=== PATIENT | male | born 1990 | race Caucasian/White ===

== ENCOUNTER 2019-05-12 13:32 | Inpatient (IN) | payer SELFPAY ==
[~2019-05-12] VITALS: Ht 185.4 cm; Wt 104.8 kg
[2019-05-12] VITALS (9 sets, daily range): BP systolic 95–133; BP diastolic 61–81
[~2019-05-12 13:32] MED LIST: GEMF600T PO; METF-442 PO
--- NOTE | 2019-05-12 13:54 | NUR ---
LUQ ABDOMINAL PAIN W/ NAUSEA AND VOMITING SINCE THIS MORNING. STATES PAIN IS 10/10 AND SHARP. HAD ABOUT 3 EPISODES OF VOMITING TODAY. SLIGHTLY DIAPHORETIC. AOX4, AMB, VSS, RR EVEN AND UNLABORED. DENIES SOB, DIZZINESS, WEAKNESS. NO ACUTE DISTRESS NOTED. SEEN BY MARGIE MATTSON. AWAITING ORDERS.
[2019-05-12] MEDS ORDERED: MORPHINE SULFATE INJ 4 MG/ML DISP.SYRIN ONE (13:56)
[2019-05-12] MEDS ORDERED: ONDANSETRON HCL/PF 4 MG/2 ML VIAL ONE (13:56)
[2019-05-12] MEDS ORDERED: IV NS 0.9% 1,000 ML BAG IV ONE (14:00)
[2019-05-12] MEDS ORDERED: ONDANSETRON HCL/PF 4 MG/2 ML VIAL IVP ONE (14:00)
[2019-05-12] MEDS ORDERED: MORPHINE SULFATE INJ 2 MG/ML DISP.SYRIN IV ONE (14:00)
[2019-05-12 14:10] LABS: BASOPHILS # (AUTO) 0.1 /CMM (0.0-0.2); BASOPHILS % (AUTO) 1.1 % (0.0-2.0); EOSINOPHILS % (AUTO) 2.4 % (0.0-6.0); HEMATOCRIT 48 % (39-51); HEMOGLOBIN 16.8 g/dL (13.5-17.5); LYMPHOCYTES # (AUTO) 3.1 /CMM (0.8-4.8); LYMPHOCYTES % (AUTO) 39.8 % (20.0-44.0); MEAN CORPUSCULAR HGB CONC 35 g/dl (31.0-36.0); MEAN CORPUSCULAR VOLUME 87 fL (80-96); MONOCYTES # (AUTO) 0.7 /CMM (0.1-1.30); MONOCYTES % (AUTO) 8.9 % (2.0-12.0); NEUTROPHILS # (AUTO) 3.8 /CMM (1.8-8.9); NEUTROPHILS % (AUTO) 47.8 % (43.0-81.0); PLATELET COUNT (AUTO) 301 /CMM (150-450); RED BLOOD CELL COUNT(AUTO) 5.53 MIL/uL (4.5-6.0); WHITE BLOOD COUNT (AUTO) 7.9 K/uL (4.3-11.0)
[2019-05-12 14:18] LABS: CALCIUM, SERUM 8.6 mg/dL (8.5-10.1); CREATININE 0.8 mg/dL (0.6-1.3); POTASSIUM 3.6 mmol/L (3.5-5.1)
[2019-05-12 14:24] LABS: ALBUMIN 4.1 g/dL (3.4-5.0); BILIRUBIN,DIRECT 0.1 mg/dL (0.0-0.2); BILIRUBIN,TOTAL 0.6 mg/dL (0.2-1.0); TOTAL PROTEIN, SERUM 8.5 g/dL (6.4-8.2)
[2019-05-12] MEDS ORDERED: HYDROMORPHONE 1 MG/1 ML DISP.SYRIN ONE ×3 (14:40→22:35)
[2019-05-12] MEDS ORDERED: HYDROMORPHONE INJ 0.5 MG/0.5 ML SYRINGE IV ONE ×2 (15:00→22:30)
--- NOTE | 2019-05-12 15:20 | NUR ---
ENDOSCOPY NURSE AT BEDSIDE
--- NOTE | 2019-05-12 15:45 | NUR ---
WAITING FOR ICU BED
[2019-05-12] MEDS ORDERED: HYDROMORPHONE INJ 2 MG/ML DISP.SYRIN IV ONE (16:30)
--- NOTE | 2019-05-12 16:30 | NUR ---
PT REQUESTING MORE PAIN MEDICATION. PA AWARE
[2019-05-12 16:48] LABS: CHOLESTEROL 241 mg/dL (<200); HDL CHOLESTEROL 18 mg/dL (40-60); LDL 50 mg/dL (0-99); TRIGLYCERIDES 1570 mg/dL (30-150)
--- NOTE | 2019-05-12 16:59 | NUR ---
ICU 258
[2019-05-12] MEDS ORDERED: ACETAMINOPHEN 325 MG TABLET PO PRN (17:00)
[2019-05-12] MEDS ORDERED: Z GUARD REMEDY 2 OZ OINT TP PRN (17:00)
[2019-05-12] MEDS ORDERED: MAGNESIUM HYDROXIDE 30 ML UDC PO PRN (17:00)
[2019-05-12] MEDS ORDERED: ZOLPIDEM TARTRATE 5 MG TABLET PO PRN (17:00)
[2019-05-12] MEDS ORDERED: IV D5/ 0.9% NACL 1,000 ML IV PRN ×2 (17:00→21:30)
--- NOTE | 2019-05-12 17:39 | NUR ---
REPORT GIVEN TO SHERMAN OSMAN FOR ANNA, ICU 258. ADMITTING DARRIAN NOE, PANCREATITIS.
--- NOTE | 2019-05-12 17:42 | NUR ---
REPORT RECEIVED FROM [facility] ED PATIENT TO GO TO ROOM 258
--- NOTE | 2019-05-12 17:55 | NUR ---
RECEIVED PT VIA [facility] ACLS PROTOCOL ABLE TO AMBULATE TO BED. A/O X4 MALAGASY SPEAKING ABLE TO UNDERSTAND SOME FRISIAN. CURRENT VITALS T 98.2 HR 71 BP 140/73 O2 99% ON ROOM AIR. NO SIGN OR SYMPTOMS OF RESPIRATORY DISTRESS C/O PAIN /10 TO LUQ. SINUS ON MONITOR URINAL AT BEDSIDE WILL F/U WITH UA. ABLE TO MOVE ALL EXTREMITIES. NPO AT THIS TIME. IV ACCESS TO LAC # 20 GAUGE SL AND R HAND # 20 GAUGE. IVF D2NS@ 80 ML RUNNING IN R HAND. MED RECON COMPLETE WILL FOLLOW OUT ORDERS OF INSULIN DRIP PROTOCOL. SAFETY AND ASPIRATION PRECAUTIONS IN PLACE ORIENTED TO ROOM AND CALL SYSTEM. WILL CONT TO MONITOR ACCORDINGLY
--- NOTE | 2019-05-12 17:55 | NUR ---
[facility]
[2019-05-12] MEDS: INSULIN REGULAR, HUMAN 100 UNIT in IV NS 0.9% 99 ML IV PRN ×2 (18:56)
--- NOTE | 2019-05-12 18:59 | NUR ---
INSULIN STARTED @ 10 UNITS /HR
--- NOTE | 2019-05-12 19:17 | NUR ---
REPORT ENDORSED TO NOC
[2019-05-12] MEDS: MORPHINE SULFATE INJ 2 MG/ML DISP.SYRIN IV PRN (19:51)
[2019-05-12] MEDS ORDERED: Sodium Chloride 154 MEQ in IV 10% DEXTROSE 1,000 ML IV PRN (20:00)
[2019-05-12] MEDS ORDERED: diphenhydrAMINE HCL 50 MG/ML VIAL IV PRN (20:00)
--- NOTE | 2019-05-12 20:00 | NUR ---
[facility] - NOTES - RECEIVED PT IN BED, AWAKE ALERT ORIENTED X 4. PT WAS ADMITTED FROM PANCREATITIS SECONDARY TO HIGH TRIGLYCERIDES 1570. PER FIRE BOSS DARRIAN NOE PT IS ON INSULIN GTT @ 10 UNITS/HR AND D5NS @ 80 ML/HR. PT IS ON ROOM AIR 02SAT WNL. PT IS IN NSR, WITH BP WNL. PT IS NPO EXCEPT MEDS. PT CAN USE URINAL. SKIN IS INTACT. IV RIGHT HAND 20 AND L AC 20. WILL CONTINUE TO MONITOR
--- NOTE | 2019-05-12 21:05 | NUR ---
ORDER RECEIVED FROM DARRIAN NOE NP, TO PLACE PT ON D5NS @ 100 ML/HR, INSULIN GTT 8 UNITS/HR
[2019-05-12] MEDS: GEMFIBROZIL 600 MG TABLET PO SCH (21:20)
[2019-05-12] MEDS: IV D5/ 0.9% NACL 1,000 ML IV SCH (21:35)
[2019-05-12] MEDS: ENOXAPARIN SODIUM 40 MG/0.4 ML DISP.SYRIN SQ SCH (21:36)
[2019-05-12] MEDS: BLOOD SUGAR DIAGNOSTIC 1 EACH STRIP IN SCH ×2 (22:24→23:28)
[2019-05-12] MEDS ORDERED: HYDROMORPHONE 1 MG/1 ML DISP.SYRIN IV ONE (23:00)
[2019-05-13] VITALS (24 sets, daily range): BP systolic 93–127; BP diastolic 45–97
[2019-05-13] MEDS: BLOOD SUGAR DIAGNOSTIC 1 EACH STRIP IN SCH ×24 (00:01→23:14)
[2019-05-13] MEDS: IV D5/ 0.9% NACL 1,000 ML IV SCH (04:15)
[2019-05-13 04:44] LABS: BASOPHILS % (AUTO) 0.4 % (0.0-2.0); EOSINOPHILS % (AUTO) 1.3 % (0.0-6.0); HEMATOCRIT 43 % (39-51); HEMOGLOBIN 14.8 g/dL (13.5-17.5); LYMPHOCYTES # (AUTO) 2.1 /CMM (0.8-4.8); LYMPHOCYTES % (AUTO) 19.7 % (20.0-44.0); MEAN CORPUSCULAR HGB CONC 35 g/dl (31.0-36.0); MEAN CORPUSCULAR VOLUME 87 fL (80-96); MONOCYTES # (AUTO) 0.8 /CMM (0.1-1.30); MONOCYTES % (AUTO) 7.1 % (2.0-12.0); NEUTROPHILS # (AUTO) 7.7 /CMM (1.8-8.9); NEUTROPHILS % (AUTO) 71.5 % (43.0-81.0); PLATELET COUNT (AUTO) 258 /CMM (150-450); RED BLOOD CELL COUNT(AUTO) 4.88 MIL/uL (4.5-6.0); WHITE BLOOD COUNT (AUTO) 10.8 K/uL (4.3-11.0)
[2019-05-13 05:36] LABS: ALBUMIN 3.1 g/dL (3.4-5.0); BILIRUBIN,DIRECT 0.1 mg/dL (0.0-0.2); BILIRUBIN,TOTAL 0.4 mg/dL (0.2-1.0); CALCIUM, SERUM 8.2 mg/dL (8.5-10.1); CREATININE 0.8 mg/dL (0.6-1.3); MAGNESIUM 1.9 mg/dL (1.8-2.4); PHOSPHORUS 3.9 mg/dL (2.5-4.9); POTASSIUM 3.2 mmol/L (3.5-5.1); TOTAL PROTEIN, SERUM 6.8 g/dL (6.4-8.2)
[2019-05-13] MEDS: MORPHINE SULFATE INJ 2 MG/ML DISP.SYRIN IV PRN ×4 (06:26→20:00)
[2019-05-13] MEDS: ONDANSETRON HCL/PF 4 MG/2 ML VIAL IVP PRN ×2 (06:26→21:53)
[2019-05-13] MEDS: GEMFIBROZIL 600 MG TABLET PO SCH ×2 (08:02→20:00)
[2019-05-13] MEDS ORDERED: IV D5/ 0.9% NACL 1,000 ML IV PRN (08:26)
[2019-05-13] MEDS: INSULIN REGULAR, HUMAN 100 UNIT in IV NS 0.9% 99 ML IV PRN ×6 (09:14→22:31)
[2019-05-13] MEDS ORDERED: POTASSIUM CL. PREMIX PERIPHER. 50 ML IV SCH (09:25)
--- NOTE | 2019-05-13 09:30 | NUR ---
ICU/RN: CYNTHIA Paulino notified of blood glucose trends; orders for insulin gtt and IVF rate changes noted and carried out. Updated on status telephonically.
[2019-05-13] MEDS ORDERED: Potassium Chloride 10 MEQ, LIDOCAINE HCL/PF 1% 1 ML in IV NS 0.9% 50 ML IV SCH (10:00)
[2019-05-13] MEDS ORDERED: POTASSIUM CHLORIDE 20 MEQ TAB.PRT.SR PO ONE (10:30)
[2019-05-13] MEDS: Sodium Chloride 154 MEQ in IV 10% DEXTROSE 1,000 ML IV PRN ×3 (10:39→21:53)
--- NOTE | 2019-05-13 13:00 | NUR ---
ICU/RN: Pt in bed, sleepy, arouses easily. Pain management effective.
--- NOTE | 2019-05-13 18:14 | NUR ---
ICU/RN: Notified CYNTHIA Paulino of blood glucose trend from [id number] post insulin drip rate changes. Per REGIONAL MARKETING MANAGER, titrate insulin drip to 6 units/hr. Noted and carried out. REGIONAL MARKETING MANAGER to see pt later.
--- NOTE | 2019-05-13 19:30 | NUR ---
BRAKE COUPLER DINKEY INITIAL SHIFT NOTES RECEIVED PATIENT IN BED, AWAKE, ALERT AND ORIENTED X3, ABLE TO VERBALIZE NEEDS. BREATHING EVEN AND NONLABORED, TOLERATING ROOM AIR WELL. BEDSIDE NET ARCHITECT SHOWS SINUS RHYTHM, HR 87 BPM. IV SITES PATENT AND INTACT, ONGOING INSULIN DRIP, FIXED RATE @ 6 UNITS/HR. ALSO INFUSING D10 GTT @ 200ML/HR. PLAN OF CARE DISCUSSED WITH THE PATIENT, WHOM VERBALIZES UNDERSTANDING. BED IN LOWEST AND LOCKED POSITION, CALL LIGHT WITHIN EASY REACH. WILL CONTINUE TO CLOSELY MONITOR
[2019-05-13] MEDS: ENOXAPARIN SODIUM 40 MG/0.4 ML DISP.SYRIN SQ SCH (20:01)
[2019-05-14] VITALS (24 sets, daily range): BP systolic 102–145; BP diastolic 50–97
[2019-05-14] MEDS: BLOOD SUGAR DIAGNOSTIC 1 EACH STRIP IN SCH ×24 (00:07→23:05)
[2019-05-14] MEDS: HYDROCODONE/APAP 5/325MG 1 EACH TABLET PO PRN ×2 (01:46→10:59)
[2019-05-14] MEDS: Sodium Chloride 154 MEQ in IV 10% DEXTROSE 1,000 ML IV PRN ×4 (03:02→18:47)
[2019-05-14 04:38] LABS: BASOPHILS % (AUTO) 0.3 % (0.0-2.0); EOSINOPHILS % (AUTO) 3.5 % (0.0-6.0); HEMATOCRIT 39 % (39-51); HEMOGLOBIN 13.3 g/dL (13.5-17.5); LYMPHOCYTES # (AUTO) 2.7 /CMM (0.8-4.8); LYMPHOCYTES % (AUTO) 38.7 % (20.0-44.0); MEAN CORPUSCULAR HGB CONC 35 g/dl (31.0-36.0); MEAN CORPUSCULAR VOLUME 88 fL (80-96); MONOCYTES # (AUTO) 0.8 /CMM (0.1-1.30); MONOCYTES % (AUTO) 10.8 % (2.0-12.0); NEUTROPHILS # (AUTO) 3.2 /CMM (1.8-8.9); NEUTROPHILS % (AUTO) 46.7 % (43.0-81.0); PLATELET COUNT (AUTO) 227 /CMM (150-450); WHITE BLOOD COUNT (AUTO) 6.9 K/uL (4.3-11.0)
[2019-05-14 04:54] LABS: CALCIUM, SERUM 8.4 mg/dL (8.5-10.1); CREATININE 0.8 mg/dL (0.6-1.3); MAGNESIUM 1.8 mg/dL (1.8-2.4); PHOSPHORUS 3.6 mg/dL (2.5-4.9); POTASSIUM 3.5 mmol/L (3.5-5.1)
--- NOTE | 2019-05-14 07:05 | NUR ---
RN NOTES RECEIVED PATIENT ON BED,A/Ox3, ON ON RA , RESPIRATION EVEN AND UNLABORED TELE SR HR IN 60'S, , IV SITES PATENT AND INTACT, ONGOING INSULIN DRIP, FIXED RATE @ 6 UNITS/HR. IV D10 NS @ 200ML/HR. BED IS LOCKED AND IN LOWEST POSITION ,CALL LIGHT WITHIN EASY REACH. WILL CONTINUE ACCU CHECK Q 1HR PER ORDER . AND MONITOR PT CLOSELY.
[2019-05-14] MEDS: GEMFIBROZIL 600 MG TABLET PO SCH ×2 (08:09→20:23)
[2019-05-14] MEDS: MORPHINE SULFATE INJ 2 MG/ML DISP.SYRIN IV PRN ×4 (08:10→19:59)
--- NOTE | 2019-05-14 11:00 | NUR ---
RN NOTES PT STANDING UP TO USE THE URINAL , VSS STABLE, CONTINUE TO MONITOR.
--- NOTE | 2019-05-14 14:00 | NUR ---
RN NOTES PT TOLERATING CLEAR LIQUID DIET WELL, VSS STABLE, NO DISTESS NOTED, CONTINUE TO MONITOR.
[2019-05-14] MEDS: INSULIN REGULAR, HUMAN 100 UNIT in IV NS 0.9% 99 ML IV PRN ×2 (15:44)
--- NOTE | 2019-05-14 18:23 | NUR ---
RN NOTES VSS STABLE, NO SIGNIFICANT CHANGES NOTED ON THIS SHIFT , WILL ENDOSE TO DIE DRAWING CHECKER NURSE FOR CONTINUITY OF CARE.
[2019-05-14] MEDS: ENOXAPARIN SODIUM 40 MG/0.4 ML DISP.SYRIN SQ SCH (20:24)
[2019-05-14] MEDS: ONDANSETRON HCL/PF 4 MG/2 ML VIAL IVP PRN (22:15)
[2019-05-15] VITALS (14 sets, daily range): BP systolic 104–148; BP diastolic 53–81
[2019-05-15] MEDS: BLOOD SUGAR DIAGNOSTIC 1 EACH STRIP IN SCH ×14 (00:07→13:00)
[2019-05-15] MEDS: MORPHINE SULFATE INJ 2 MG/ML DISP.SYRIN IV PRN ×2 (00:10→04:20)
[2019-05-15] MEDS: Sodium Chloride 154 MEQ in IV 10% DEXTROSE 1,000 ML IV PRN ×3 (00:47→11:31)
[2019-05-15 04:50] LABS: BASOPHILS % (AUTO) 0.5 % (0.0-2.0); EOSINOPHILS % (AUTO) 4.4 % (0.0-6.0); HEMATOCRIT 40 % (39-51); HEMOGLOBIN 13.8 g/dL (13.5-17.5); LYMPHOCYTES # (AUTO) 2.4 /CMM (0.8-4.8); LYMPHOCYTES % (AUTO) 39.8 % (20.0-44.0); MEAN CORPUSCULAR HGB CONC 34 g/dl (31.0-36.0); MEAN CORPUSCULAR VOLUME 87 fL (80-96); MONOCYTES # (AUTO) 0.9 /CMM (0.1-1.30); MONOCYTES % (AUTO) 14.1 % (2.0-12.0); NEUTROPHILS # (AUTO) 2.5 /CMM (1.8-8.9); NEUTROPHILS % (AUTO) 41.2 % (43.0-81.0); PLATELET COUNT (AUTO) 247 /CMM (150-450); RED BLOOD CELL COUNT(AUTO) 4.59 MIL/uL (4.5-6.0); WHITE BLOOD COUNT (AUTO) 6.1 K/uL (4.3-11.0)
[2019-05-15 05:20] LABS: ALBUMIN 3.1 g/dL (3.4-5.0); BILIRUBIN,TOTAL 0.5 mg/dL (0.2-1.0); CALCIUM, SERUM 8.6 mg/dL (8.5-10.1); CREATININE 0.7 mg/dL (0.6-1.3); POTASSIUM 3.3 mmol/L (3.5-5.1); TOTAL PROTEIN, SERUM 6.9 g/dL (6.4-8.2)
--- NOTE | 2019-05-15 07:00 | NUR ---
HAT BLOCK MAKER INITIAL SHIFT NOTES RECEIVED BEDSIDE REPORT PATIENT IN BED, AWAKE, ALERT AND ORIENTED X3, ABLE TO VERBALIZE NEEDS. BREATHING EVEN AND NONLABORED, TOLERATING ROOM AIR WELL. BEDSIDE SKEIN BLEACHER SHOWS SINUS RHYTHM, HR 87 BPM. IV SITES PATENT AND INTACT, ONGOING INSULIN DRIP LEFT HAND # 20 GAUGE FIXED RATE @ 6 UNITS/HR.RIGHT HAND # 20 GAUGE D10 GTT @ 200ML/HR. SAFETY PRECAUTIONS IN PLACE BED IN LOWEST AND LOCKED POSITION, CALL LIGHT WITHIN EASY REACH. WILL CONTINUE TO CLOSELY MONITOR
[2019-05-15] MEDS: GEMFIBROZIL 600 MG TABLET PO SCH (09:00)
[2019-05-15] MEDS: INSULIN REGULAR, HUMAN 100 UNIT in IV NS 0.9% 99 ML IV PRN ×2 (09:17)
--- NOTE | 2019-05-15 10:00 | NUR ---
MESSAGE LEFT WITH EPIC FOR DR MAYS IN REGARDS TO PATIENT WANTS TO LEAVE AMA
--- NOTE | 2019-05-15 10:24 | NUR ---
TITRATED INSULIN DOWN TO 4 UNITS/HR PER PROTOCOL BS 185 MG/DL
--- NOTE | 2019-05-15 11:00 | NUR ---
INSULIN DRIP TITRATED DOWN TO 2.5 UNITS/HR BS 169 MG/DL
--- NOTE | 2019-05-15 11:44 | NUR ---
PATIENT REFUSING TO EAT JUST WANTS TO GO HOME STATES HE HAS BUSINESS HE NEEDS TO TAKE CARE OF AND ONLY HE CAN DO IT. WILL PAGE EPIC AGAIN
--- NOTE | 2019-05-15 11:48 | NUR ---
SPOKE WITH DOCTOR ANDELDAN PATIENT IS NOT STABLE TO LEAVE AND NEEDS TO BE TITRATED OF INSULIN . WILL EDUCATE THE PATIENT IN THE DANGER OF BEING TAKEN OFF THE INSULIN ABRUPTLY.
--- NOTE | 2019-05-15 11:57 | NUR ---
DECREASED INSULIN TO 1 UNIT/HR PER ALGORITHM BS 178 MG/DL
[2019-05-15] MEDS ORDERED: POTASSIUM CHLORIDE 20 MEQ TAB.PRT.SR PO SCH (12:00)
--- NOTE | 2019-05-15 12:09 | NUR ---
EXPLAINED TO PATIENT THE RISK FACTORS OF LEAVING . PATIENT WANTS TO SPEAK WITH MD
--- NOTE | 2019-05-15 12:10 | NUR ---
LEFT MESSAGE WITH EPIC THAT PATIENT WANTS TO SPEAK WITH MD
--- NOTE | 2019-05-15 13:00 | NUR ---
PATIENT REFUSES TO HAVE BLOOD SUGAR CHECKED WANTS TO LEAVE AMA
--- NOTE | 2019-05-15 13:13 | NUR ---
LEFT MESSAGE WITH EPIC PATIENT IS LEAVING AMA. I HAVE EXPLAINED TO THE PATIENT THE RISKS AND CONSEQUENCES INVOLVED IN LEAVING THE HOSPITAL AT THIS TIME AND THE NEED FOR CONTINUED TREATMENT AND HOSPITALIZATION. MR GALLO IS OF MENTAL AND EMOTIONAL STATE TO ALLOW HIMSELF TO MAKE THIS DECISION. I HAVE INFORMED HIM TO SEEK MEDICAL ATTENTION IMMEDIATELY FRO ANY ADVERSE REACTIONS
--- NOTE | 2019-05-15 13:20 | NUR ---
DR MAYS CALLED BACK AND EXPLAINED TO HIM THAT PATIENT WANTS TO LEAVE. MISBAH EXPLAINED AND SIGNED IV REMOVED FROM RIGHT HAND # 20 AND LAC # 20 CATH INTACT.
--- NOTE | 2019-05-15 13:30 | NUR ---
PATIENT LEFT BEFORE PAPERWORK PRINTED
== END 2019-05-15 14:08 | disposition left against medical advice (07) | DRG 439 ==
LOC: ER 13:37 → MED 15:20 → ICU 17:00
PROVIDERS: ADMIT Nurse Practitioner Acute Care; ATTEND Nurse Practitioner Acute Care
DX: K85.90 Acute pancreatitis without necrosis or infection, unspecified (principal); E87.1 Hypo-osmolality and hyponatremia; E78.5 Hyperlipidemia, unspecified; E78.1 Pure hyperglyceridemia; E11.65 Type 2 diabetes mellitus with hyperglycemia; Z79.899 Other long term (current) drug therapy; Z79.84 Long term (current) use of oral hypoglycemic drugs; E86.1 Hypovolemia; E87.6 Hypokalemia; E66.9 Obesity, unspecified; Z68.30 Body mass index [BMI] 30.0-30.9, adult; K76.0 Fatty (change of) liver, not elsewhere classified
CPT/HCPCS: 36415; 76705-TC; 80048-TC; 80053-TC; 80061-TC; 80076-TC; 82962-TC; 83690-TC; 83735-TC; 84100-TC; 84478-TC; 85025-TC; 87081-TC; A4216; A6403; G0378; J1170; J1200; J1650; J1815; J2270; J2405; J3480; J3490; J7030; J7042

== ENCOUNTER 2019-06-22 04:47 | Emergency (ER) | payer MEDICAID ==
[~2019-06-22] VITALS: Ht 188 cm; Wt 82.6 kg
--- NOTE | 2019-06-22 05:10 | NUR ---
PT BIBSELF C/O EPIGASTRIC PAIN W/ VOMITTING X 1 DAY. +DIARRHEA. PT AAOX4. BREATHING EVEN AND UNLABORED. PT PLACED ON CONTINIOUS CAR WASH MANAGER AND PULSE OX. NO ACUTE DISTRESS NOTED AT THIS TIME. SKIN WARM AND INTACT.
[2019-06-22] MEDS ORDERED: ONDANSETRON HCL/PF 4 MG/2 ML VIAL ONE ×2 (05:12→05:26)
[2019-06-22] MEDS ORDERED: PANTOPRAZOLE 40 MG VIAL ONE (05:25)
[2019-06-22] MEDS ORDERED: HYDROMORPHONE 1 MG/1 ML DISP.SYRIN ONE (05:26)
[2019-06-22] MEDS ORDERED: HYDROMORPHONE 1 MG/1 ML DISP.SYRIN IV ONE (05:30)
[2019-06-22] MEDS ORDERED: PANTOPRAZOLE 40 MG VIAL IV ONE (05:30)
[2019-06-22] MEDS ORDERED: ONDANSETRON HCL/PF 4 MG/2 ML VIAL IVP ONE (05:30)
[2019-06-22] MEDS ORDERED: IV NS 0.9% 1,000 ML BAG IV ONE (05:30)
[2019-06-22 05:35] LABS: BASOPHILS # (AUTO) 0.1 /CMM (0.0-0.2); BASOPHILS % (AUTO) 0.3 % (0.0-2.0); EOSINOPHILS % (AUTO) 0.3 % (0.0-6.0); HEMATOCRIT 47 % (39-51); HEMOGLOBIN 16.2 g/dL (13.5-17.5); LYMPHOCYTES # (AUTO) 1.3 /CMM (0.8-4.8); LYMPHOCYTES % (AUTO) 6.7 % (20.0-44.0); MEAN CORPUSCULAR HGB CONC 34 g/dl (31.0-36.0); MEAN CORPUSCULAR VOLUME 87 fL (80-96); MONOCYTES # (AUTO) 1.5 /CMM (0.1-1.30); NEUTROPHILS % (AUTO) 84.7 % (43.0-81.0); PLATELET COUNT (AUTO) 260 /CMM (150-450); RED BLOOD CELL COUNT(AUTO) 5.43 MIL/uL (4.5-6.0); WHITE BLOOD COUNT (AUTO) 18.9 K/uL (4.3-11.0)
--- NOTE | 2019-06-22 05:40 | NUR ---
RADIOLOGY AT BEDSIDE FOR XRAY.
[2019-06-22 05:43] LABS: CALCIUM, SERUM 9.5 mg/dL (8.5-10.1); CARBON DIOXIDE 23 mmol/L (21-32); CHLORIDE 99 mmol/L (98-107); CREATININE 1.2 mg/dL (0.6-1.3); GLUCOSE 251 mg/dL (74-106); POTASSIUM 3.9 mmol/L (3.5-5.1); SODIUM SERUM 134 mmol/L (136-145); UREA NITROGEN, BLOOD 12 mg/dL (7-18)
[2019-06-22 05:49] LABS: ALANINE AMINOTRANSFERASE 59 U/L (12-78); ALBUMIN 3.9 g/dL (3.4-5.0); ALKALINE PHOSPHATASE 115 U/L (46-116); ASPARTATE AMINOTRANSFERASE 24 U/L (15-37); BILIRUBIN,DIRECT 0.1 mg/dL (0.0-0.2); BILIRUBIN,TOTAL 0.6 mg/dL (0.2-1.0); LIPASE 166 U/L (73-393); TOTAL PROTEIN, SERUM 8.1 g/dL (6.4-8.2)
--- NOTE | 2019-06-22 05:55 | NUR ---
NOTED TACHYCARDIA. MD AWARE.
--- NOTE | 2019-06-22 06:15 | NUR ---
PT BROUGHT TO RADIOLOGY FOR CT
[2019-06-22] MEDS ORDERED: IV NS 0.9% 1,000 ML IV ONE (06:30)
--- NOTE | 2019-06-22 07:50 | NUR ---
PATIENT ASLEEP BUT EASILY AROUSABLE. STILL TACHYCARDIC BUT DENIES PAIN AT THIS TIME. NEEDS ATTENDED. WILL CONTINUE TO MONITOR.
--- NOTE | 2019-06-22 08:25 | NUR ---
PATIENT A/OX4, AMBULATORY WITH STEADY GAIT. DENIES PAIN AT THIS TIME. NEEDS ATTENDED. IV removed. Catheter intact and site benign. Pressure and 4x4 applied to site. No bleeding noted. Patient discharged to home in stable condition. Written and verbal after care instructions given. Patient verbalizes understanding of instruction.
[2019-06-22 08:26] VITALS: BP 107/52
== END 2019-06-22 08:27 | disposition home or self-care (01) ==
LOC: ER 04:51
DX: R10.84 Generalized abdominal pain (principal); R11.2 Nausea with vomiting, unspecified; R51 Headache; E11.9 Type 2 diabetes mellitus without complications; F10.10 Alcohol abuse, uncomplicated; R00.0 Tachycardia, unspecified; Y90.9 Presence of alcohol in blood, level not specified; Z87.19 Personal history of other diseases of the digestive system
CPT/HCPCS: 36415; 71045; 74176; 80048; 80076; 83690; 84484; 85025; 93005; 96361; 96374; 96375; 99284; C9113; J1170; J2405 ×2; J7030 ×2

== ENCOUNTER 2019-07-16 14:54 | Inpatient (IN) | payer MEDICAID ==
[~2019-07-16] VITALS: Ht 185.4 cm; Wt 99.4 kg
--- NOTE | 2019-07-16 06:05 | NUR ---
MS RN NOTES PATIENT AWAKE IN BED. PATIENT UPSET D/T REQUESTING PRN MORPHINE EARLIER THAN NEXT SCHEDULED DOSE. PATIENT NOTED TO WITH THESE EPISODES THROUGHOUT SHIFT. LAST DOSE PRN MORPHINE GIVEN AT 0221 AND REMINDED PATIENT NEXT DOSE IS DUE AT 0621. EDUCATED PATIENT ON IMPORTANCE OF MAINTAINED Q4HR FREQUENCY SUCH MEDICATION CAN LOWER VITALS AND O2 SATURATION. PATIENT VERBALIZED UNDERSTANDING. PATIENT WAS OFFERED PRN TORADOL BUT REFUSED. NPO STATUS MAINTAINED ORDERED. PERIPHERAL LINE INTACT AND PATENT. URINE SPECIMEN COLLECTED AND AWAITING LAB PAPER PATTERN INSPECTOR. ROOM FREE OF CLUTTER AND BELONGINGS KEPT NEAR BEDSIDE. WILL ENDORSE TO ONCOMING SHIFT.
--- NOTE | 2019-07-16 15:03 | NUR ---
PT CAME INTO THE ED C/O ABD PAIN x 2 HRS COMMERCIAL SHEET METAL FOREMAN, +N/V, -DIARRHEA. PT AAOX4, VSS, BREATHING EVEN AND UNLABORED W/ NO ACUTE DISTRESS NOTED. PT CONNECTED TO THE MONITOR AND POX
[2019-07-16] MEDS ORDERED: KETOROLAC TROMETHAMINE INJ 30 MG/ML VIAL ONE (15:15)
[2019-07-16] MEDS ORDERED: ONDANSETRON HCL/PF 4 MG/2 ML VIAL ONE ×2 (15:15→16:31)
[2019-07-16] MEDS ORDERED: PANTOPRAZOLE 40 MG VIAL ONE (15:15)
[2019-07-16 15:29] LABS: BASOPHILS # (AUTO) 0.1 /CMM (0.0-0.2); EOSINOPHILS % (AUTO) 1.3 % (0.0-6.0); HEMATOCRIT 47 % (39-51); HEMOGLOBIN 16.7 g/dL (13.5-17.5); LYMPHOCYTES # (AUTO) 2.8 /CMM (0.8-4.8); LYMPHOCYTES % (AUTO) 31.3 % (20.0-44.0); MEAN CORPUSCULAR HGB CONC 36 g/dl (31.0-36.0); MEAN CORPUSCULAR VOLUME 86 fL (80-96); MONOCYTES # (AUTO) 0.6 /CMM (0.1-1.30); MONOCYTES % (AUTO) 6.5 % (2.0-12.0); NEUTROPHILS # (AUTO) 5.4 /CMM (1.8-8.9); NEUTROPHILS % (AUTO) 59.9 % (43.0-81.0); PLATELET COUNT (AUTO) 300 /CMM (150-450); RED BLOOD CELL COUNT(AUTO) 5.47 MIL/uL (4.5-6.0)
[2019-07-16] MEDS ORDERED: PANTOPRAZOLE 40 MG VIAL IV ONE (15:30)
[2019-07-16] MEDS ORDERED: IV NS 0.9% 1,000 ML BAG IV ONE (15:30)
[2019-07-16] MEDS ORDERED: ONDANSETRON HCL/PF 4 MG/2 ML VIAL IVP ONE (15:30)
[2019-07-16] MEDS ORDERED: KETOROLAC TROMETHAMINE INJ 30 MG/ML VIAL IV ONE (15:30)
--- NOTE | 2019-07-16 15:31 | NUR ---
IV LINE ESTABLISHED RAC 18G
[2019-07-16 15:52] LABS: BILIRUBIN,TOTAL 0.6 mg/dL (0.2-1.0); CALCIUM, SERUM 8.6 mg/dL (8.5-10.1); CREATININE 0.8 mg/dL (0.6-1.3); POTASSIUM 3.5 mmol/L (3.5-5.1)
[2019-07-16 15:56] LABS: TOTAL PROTEIN, SERUM 8.2 g/dL (6.4-8.2)
[2019-07-16] MEDS ORDERED: MORPHINE SULFATE INJ 2 MG/ML DISP.SYRIN IV ONE (16:30)
[2019-07-16] MEDS ORDERED: ONDANSETRON HCL/PF - ER 4 MG/2 ML VIAL IV ONE (16:30)
[2019-07-16] MEDS ORDERED: MORPHINE SULFATE INJ 2 MG/ML DISP.SYRIN ONE (16:31)
--- NOTE | 2019-07-16 16:40 | NUR ---
Lety rojas in ED - 07/16/19 at 1658 by SAMANTHA CALLED TELE STROKE LINE TO HAVE NEUROLOGIST REPAGED TO INITIATE TRANSFER
--- NOTE | 2019-07-16 17:14 | NUR ---
CALLED HOUSE SUP FOR BED
[2019-07-16] MEDS ORDERED: IV NS 0.9% 1,000 ML IV PRN ×2 (17:33→19:00)
[2019-07-16] MEDS ORDERED: MAGNESIUM HYDROXIDE 30 ML UDC PO PRN ×2 (18:00→19:00)
[2019-07-16] MEDS ORDERED: INSULIN REGULAR, HUMAN 100 UNIT/ML 3 ML VIAL SQ PRN (18:00)
[2019-07-16] MEDS ORDERED: Z GUARD REMEDY 2 OZ OINT TP PRN ×2 (18:00→19:00)
[2019-07-16] MEDS ORDERED: DEXTROSE 50%-WATER 50 ML DISP.SYRIN IV PRN ×2 (18:00→19:00)
[2019-07-16] MEDS ORDERED: ACETAMINOPHEN 325 MG TABLET PO PRN ×2 (18:00→19:00)
[2019-07-16] MEDS ORDERED: MAG HYDROX/AL HYDROX/SIMETH 30 ML UDC PO PRN ×2 (18:00→19:00)
[2019-07-16] MEDS ORDERED: *INSULIN REGULAR(HUMULIN R)HUM 100 UNIT/ML VIAL SQ PRN (18:00)
[2019-07-16] MEDS ORDERED: ONDANSETRON HCL/PF 4 MG/2 ML VIAL IVP PRN ×2 (18:00→19:00)
[2019-07-16] MEDS ORDERED: KETOROLAC TROMETHAMINE INJ 30 MG/ML VIAL IV PRN ×2 (18:00→19:00)
--- NOTE | 2019-07-16 18:39 | NUR ---
REPORT GIVEN TO DANIEL WHITAKER
[2019-07-16 20:00] VITALS: BP 128/68
--- NOTE | 2019-07-16 20:00 | NUR ---
MS RN NOTES RECEIVED PATIENT AWAKE IN BED. PATIENT STILL WITH C/O 10/10 ABDOMINAL PAIN, PRN TORADOL 30MG IV GIVEN 1HR AGO AND INEFFECTIVE. DR. FLORES MADE AWARE WITH NEW ORDER FOR MORPHINE 2MG Q4HRS PRN. ORDER VERIIED, NOTED AND CARRIED OUT. WILL CONTINUE TO MONITOR FOR EFFECTIVENESS. PERIPHERAL LINE INTACT AND PATENT. BED IN LOW LOCK SETTING. ROOM FREE OF CLUTTER AND BELONGINGS KEPT NEAR BEDSIDE. WILL CONTINUE TO MONITOR.
[2019-07-16] MEDS ORDERED: GEMFIBROZIL 600 MG TABLET PO SCH (21:00)
[2019-07-16] MEDS: GEMFIBROZIL 600 MG TABLET PO SCH (21:00)
[2019-07-16] MEDS: MORPHINE SULFATE INJ 2 MG/ML DISP.SYRIN IV PRN (21:01)
[2019-07-16] MEDS ORDERED: BLOOD SUGAR DIAGNOSTIC 1 EACH STRIP VI SCH (22:00)
[2019-07-16] MEDS: BLOOD SUGAR DIAGNOSTIC 1 EACH STRIP VI SCH (23:07)
[2019-07-17] MEDS ORDERED: IV D5/ 0.9% NACL 1,000 ML IV ONE (02:00)
[2019-07-17] MEDS: MORPHINE SULFATE INJ 2 MG/ML DISP.SYRIN IV PRN ×6 (02:21→23:18)
[2019-07-17] MEDS: IV D5/ 0.9% NACL 1,000 ML IV PRN ×2 (02:33→19:17)
--- NOTE | 2019-07-17 02:44 | NUR ---
SPOKE WITH DR. FLORES AND OBTAINED ORDER TO CHANGE IVF NS 0.9% TO D5NS D/T PATIENT NPO AND DIABETIC. ORDER READ BACK, NOTED, VERIFIED, AND CARRIED OUT.
[2019-07-17] MEDS: BLOOD SUGAR DIAGNOSTIC 1 EACH STRIP VI SCH ×4 (06:30→21:40)
[2019-07-17] MEDS: INSULIN REGULAR, HUMAN 100 UNIT/ML 3 ML VIAL SQ PRN ×2 (06:35→13:20)
[2019-07-17 06:45] LABS: APPEARANCE,URINE CLEAR (CLEAR); BILIRUBIN,URINE NEGATIVE (NEGATIVE); BLOOD, URINE NEGATIVE Ery/uL (NEGATIVE); COLOR,URINE YELLOW (YELLOW); KETONES,URINE NEGATIVE (NEGATIVE); LEUKOCYTE ESTERASE ,URINE NEGATIVE (NEGATIVE); NITRITE, URINE NEGATIVE (NEGATIVE); PH,URINE 5.5 (5.0-8.0); PROTEIN,URINE NEGATIVE (NEGATIVE); UGLUCOSE 500 MG/DL mg/dL (NEGATIVE); UROBILINOGEN,URINE 0.2 EU/dL (0.2)
--- NOTE | 2019-07-17 06:54 | NUR ---
MS RN NOTES PATIENT ASLEEP IN BED WITH NO DISTRESS NOTED. CALL LIGHT WITHIN REACH. NO FURTHER C/O PAIN OR DISCOMFORT. NPO STATUS OBSERVED AND MAINTAINED AT ALL TIMES. PATIENT CONTINUES TO REFUSE SKIN ASSESSMENT AND PICTURES. PERIPHERAL LINE INTACT AND PATENT. URINE SPECIMEN COLLECTED AND AWAITING LAB VICE PRINCIPAL. BED IN LOW LOCK SETTING. ROOM FREE OF CLUTTER AND BELONGINGS KEPT NEAR BEDSIDE. WILL ENDORSE TO ONCOMING SHIFT.
[2019-07-17 08:00] VITALS: BP 149/80
--- NOTE | 2019-07-17 08:00 | NUR ---
ms rn received on bed, awake,alert,oriented x4,came in w/ pancreatitis, npo at this time w/ iv running, will monitor patient.
[2019-07-17] MEDS ORDERED: PANTOPRAZOLE 40 MG VIAL IV SCH (09:00)
[2019-07-17] MEDS: GEMFIBROZIL 600 MG TABLET PO SCH ×3 (09:00→21:31)
[2019-07-17] MEDS: METFORMIN 500 MG TABLET PO SCH ×3 (09:00→17:00)
--- NOTE | 2019-07-17 09:00 | NUR ---
ms rn npo at this time, regularly getting pain shot q 4, w/ abdominal pain, all needs attended.
[2019-07-17] MEDS: PANTOPRAZOLE 40 MG VIAL IV SCH (09:02)
--- NOTE | 2019-07-17 11:00 | NUR ---
ms rn was seen by ezra bosch w/ orders made and carried out.
[2019-07-17 12:44] LABS: BASOPHILS % (AUTO) 0.3 % (0.0-2.0); EOSINOPHILS % (AUTO) 1.2 % (0.0-6.0); HEMATOCRIT 45 % (39-51); HEMOGLOBIN 15.4 g/dL (13.5-17.5); LYMPHOCYTES # (AUTO) 2.1 /CMM (0.8-4.8); LYMPHOCYTES % (AUTO) 15.6 % (20.0-44.0); MEAN CORPUSCULAR HGB CONC 34 g/dl (31.0-36.0); MEAN CORPUSCULAR VOLUME 86 fL (80-96); MONOCYTES % (AUTO) 7.2 % (2.0-12.0); NEUTROPHILS % (AUTO) 75.7 % (43.0-81.0); PLATELET COUNT (AUTO) 257 /CMM (150-450); RED BLOOD CELL COUNT(AUTO) 5.21 MIL/uL (4.5-6.0); WHITE BLOOD COUNT (AUTO) 13.3 K/uL (4.3-11.0)
[2019-07-17 12:51] LABS: CALCIUM, SERUM 8.6 mg/dL (8.5-10.1); CREATININE 0.9 mg/dL (0.6-1.3); POTASSIUM 3.7 mmol/L (3.5-5.1)
[2019-07-17 12:57] LABS: MAGNESIUM 1.9 mg/dL (1.8-2.4); PHOSPHORUS 2.7 mg/dL (2.5-4.9)
--- NOTE | 2019-07-17 15:00 | NUR ---
ms rn still waiting for gi md to see patient.
[2019-07-17 16:00] VITALS: BP 125/70
--- NOTE | 2019-07-17 17:30 | NUR ---
ms rn bs - 177=refused coverage patient is not eating.
--- NOTE | 2019-07-17 17:56 | NUR ---
ms rn on bed, no distress noted.
--- NOTE | 2019-07-17 19:40 | NUR ---
MS RN OPENING NOTES RECEIVED PATIENT FROM MORNING SHIFT, ALERT AND ORIENTED X 4. VERBALLY RESPONSIVE KYRGYZ SPEAKING AND ABLE TO FOLLOW DIRECTIONS. BREATHING REGULAR AND UNLABORED ON ROOM AIR. RIGHT HAND G22 IV LINE INTACT AND PATENT, INFUSING WELL WITH NO BLEEDING OR S/S OF INFECTION/INFILTRATION NOTED. COMPLAINED OF 1/10 PAIN ON LEFT UPPER QUADRANT, NON-PHARMACOLOGICAL INTERVENTIONS PROVIDED. REFUSED BODY ASSESSMENT, RISK AND BENEFITS EXPLAINED. PER PATIENT "I DON'T HAVE ANYTHING". BED LOW AND LOCKED ON SEMI FOWLERS POSITION. CALL LIGHT IN REACH. WILL CONTINUE TO MONITOR.
[2019-07-17 20:00] VITALS: BP 130/88
--- NOTE | 2019-07-17 21:45 | NUR ---
MS RN NOTES BS 239mg/dl, 4UNITS REGULAR INSULIN GIVEN SQ. APPLE JUICE PROVIDED. WILL CONTINUE TO MONITOR FOR S/S OF HYPO/HYPERGLYCEMIA.
[2019-07-17] MEDS: *INSULIN REGULAR(HUMULIN R)HUM 100 UNIT/ML VIAL SQ PRN (21:46)
[2019-07-17 22:00] VITALS: BP 130/88
--- NOTE | 2019-07-17 23:20 | NUR ---
MS RN NOTES COMPLAINED OF 8/10 LEFT UPPER ABDOMEN PAIN. MORPHINE 2MG GIVEN IV PUSH. NON-PHARMACOLOGICAL INTERVENTIONS DONE. VITAL SIGN WNL. WILL CONTINUE TO MONITOR.
[2019-07-18] MEDS: IV D5/ 0.9% NACL 1,000 ML IV PRN (04:47)
[2019-07-18] MEDS: MORPHINE SULFATE INJ 2 MG/ML DISP.SYRIN IV PRN ×2 (05:00→09:41)
--- NOTE | 2019-07-18 05:00 | NUR ---
MS RN NOTES COMPLAINED OF 9/10 LEFT UPPER ABDOMEN PAIN. MORPHINE 2MG GIVEN IV PUSH. NON-PHARMACOLOGICAL INTERVENTIONS DONE. VITAL SIGN WNL. WILL CONTINUE TO MONITOR.
[2019-07-18] MEDS: BLOOD SUGAR DIAGNOSTIC 1 EACH STRIP VI SCH ×2 (06:30→11:45)
[2019-07-18 06:32] LABS: BASOPHILS % (AUTO) 0.2 % (0.0-2.0); EOSINOPHILS % (AUTO) 2.4 % (0.0-6.0); HEMATOCRIT 45 % (39-51); HEMOGLOBIN 15.2 g/dL (13.5-17.5); LYMPHOCYTES % (AUTO) 18.5 % (20.0-44.0); MEAN CORPUSCULAR HGB CONC 34 g/dl (31.0-36.0); MEAN CORPUSCULAR VOLUME 86 fL (80-96); MONOCYTES # (AUTO) 1.4 /CMM (0.1-1.30); MONOCYTES % (AUTO) 12.4 % (2.0-12.0); NEUTROPHILS # (AUTO) 7.3 /CMM (1.8-8.9); NEUTROPHILS % (AUTO) 66.5 % (43.0-81.0); PLATELET COUNT (AUTO) 269 /CMM (150-450); RED BLOOD CELL COUNT(AUTO) 5.22 MIL/uL (4.5-6.0)
[2019-07-18] MEDS: *INSULIN REGULAR(HUMULIN R)HUM 100 UNIT/ML VIAL SQ PRN (06:32)
--- NOTE | 2019-07-18 06:35 | NUR ---
MS RN OPENING NOTES PATIENT IN BED ALERT AND ORIENTED X 4. VERBALLY RESPONSIVE AND ABLE TO FOLLOW DIRECTIONS. BREATHING REGULAR AND UNLABORED ON ROOM AIR. RIGHT HAND G22 IV LINE INTACT AND PATENT, INFUSING WELL WITH NO BLEEDING OR S/S OF INFECTION/INFILTRATION NOTED. COMPLAINED OF 2/10 PAIN ON LEFT UPPER QUADRANT, NON-PHARMACOLOGICAL INTERVENTIONS PROVIDED. BS 248mg/dl, 4UNITS REGULAR INSULIN GIVEN SQ. AMBULATORY WITH BRP. BED LOW AND LOCKED ON SEMI FOWLERS POSITION. CALL LIGHT IN REACH. WILL ENDORSE TO MORNING SHIFT FOR ANAN. Addendum: 07/18/19 at 0640 by JON YOU RN MS WHITAKER CLOSING NOTES
--- NOTE | 2019-07-18 06:40 | NUR ---
MS RN CLOSING NOTES PATIENT IN BED ALERT AND ORIENTED X 4. AFEBRILE WITH NO S/S OF DISTRESS OBSERVED. BED LOW AND LOCKED ON SEMI FOWLERS POSITION. CALL LIGHT IN REACH. WILL ENDORSE TO MORNING SHIFT FOR ANNA.
[2019-07-18 06:53] LABS: CALCIUM, SERUM 8.9 mg/dL (8.5-10.1); CREATININE 0.8 mg/dL (0.6-1.3); POTASSIUM 3.6 mmol/L (3.5-5.1)
[2019-07-18 07:29] LABS: AMYLASE 78 U/L (25-115); LIPASE 751 U/L (73-393)
--- NOTE | 2019-07-18 07:41 | NUR ---
RN MS OPENING NOTES Patient received on room air, no sob noted, patient denies pain at this time. Patient lying down comfortably on bed and has no complaints. Patient remains a/o x4 and has a right hand #22 with D5 1/2 ns @ 125 ml per hour. Bed at the lowest setting, call light within reach, side rails up x2.
[2019-07-18 08:00] VITALS: BP 109/72
[2019-07-18] MEDS: GEMFIBROZIL 600 MG TABLET PO SCH (08:10)
[2019-07-18] MEDS: METFORMIN 500 MG TABLET PO SCH (08:10)
[2019-07-18] MEDS: PANTOPRAZOLE 40 MG VIAL IV SCH (08:12)
[2019-07-18] MEDS: INSULIN REGULAR, HUMAN 100 UNIT/ML 3 ML VIAL SQ PRN (12:29)
--- NOTE | 2019-07-18 14:41 | NUR ---
RN MS NOTES Patient discharged on room air, no sob noted, vital signs stable. Patient has all belongings and nothing is missing. All paper work signed and patient has copies of everything. Patient stated that he understands the discharge orders and will follow them. IV lines removed with no bleeding noted.
== END 2019-07-18 14:25 | disposition home or self-care (01) | DRG 282 ==
LOC: ER 14:55 → MED 19:02
PROVIDERS: ADMIT Registered Nurse; ATTEND Registered Nurse
DX: K85.90 Acute pancreatitis without necrosis or infection, unspecified (principal); E11.65 Type 2 diabetes mellitus with hyperglycemia; E87.1 Hypo-osmolality and hyponatremia; E78.5 Hyperlipidemia, unspecified; K86.1 Other chronic pancreatitis; E86.0 Dehydration; E66.9 Obesity, unspecified; E78.1 Pure hyperglyceridemia; Z79.84 Long term (current) use of oral hypoglycemic drugs; Z91.19 Patient's noncompliance with other medical treatment and regimen; R74.0 Nonspecific elevation of levels of transaminase and lactic acid dehydrogenase [LDH]; Z76.5 Malingerer [conscious simulation]; Z68.28 Body mass index [BMI] 28.0-28.9, adult
CPT/HCPCS: 36415; 80048-TC; 80076-TC; 81000-TC; 82150-TC; 82962-TC; 83690-TC; 83735-TC; 84100-TC; 85025-TC; 87081-TC; C9113; G0378; G0480; J1815; J1885; J2270; J2405; J7030; J7042

== ENCOUNTER 2019-07-28 17:56 | Emergency (ER) | payer MEDICAID ==
[~2019-07-28] VITALS: Ht 185.4 cm; Wt 99.8 kg
--- NOTE | 2019-07-28 18:01 | NUR ---
"L face swollen/numb noticed it around 10am. Same time happened last monday was given meds (pain/swelling)" PT AAOX4, -SOB, NAD NOTED, PENDING MD NOLAN
[2019-07-28] MEDS ORDERED: IV NS 0.9% 1,000 ML BAG IV ONE ×2 (19:00→20:30)
[2019-07-28] MEDS ORDERED: GEMF600T PO (19:04)
[2019-07-28 19:15] LABS: BASOPHILS # (AUTO) 0.1 /CMM (0.0-0.2); BASOPHILS % (AUTO) 0.7 % (0.0-2.0); EOSINOPHILS % (AUTO) 1.8 % (0.0-6.0); HEMATOCRIT 43 % (39-51); HEMOGLOBIN 14.9 g/dL (13.5-17.5); LYMPHOCYTES # (AUTO) 3.1 /CMM (0.8-4.8); LYMPHOCYTES % (AUTO) 36.8 % (20.0-44.0); MEAN CORPUSCULAR HGB CONC 35 g/dl (31.0-36.0); MEAN CORPUSCULAR VOLUME 86 fL (80-96); MONOCYTES # (AUTO) 0.7 /CMM (0.1-1.30); MONOCYTES % (AUTO) 7.8 % (2.0-12.0); NEUTROPHILS # (AUTO) 4.4 /CMM (1.8-8.9); NEUTROPHILS % (AUTO) 52.9 % (43.0-81.0); PLATELET COUNT (AUTO) 316 /CMM (150-450); WHITE BLOOD COUNT (AUTO) 8.4 K/uL (4.3-11.0)
[2019-07-28 19:52] LABS: CALCIUM, SERUM 9.2 mg/dL (8.5-10.1); CREATININE 1.1 mg/dL (0.6-1.3); POTASSIUM 3.8 mmol/L (3.5-5.1)
[2019-07-28 20:25] LABS: APPEARANCE,URINE Clear (CLEAR); BILIRUBIN,URINE Negative (NEGATIVE); BLOOD, URINE Negative Ery/uL (NEGATIVE); COLOR,URINE Yellow (YELLOW); KETONES,URINE Negative (NEGATIVE); LEUKOCYTE ESTERASE ,URINE Negative (NEGATIVE); NITRITE, URINE Negative (NEGATIVE); PROTEIN,URINE Negative (NEGATIVE); UGLUCOSE 500 MG/DL mg/dL (NEGATIVE); UROBILINOGEN,URINE 0.2 EU/dL (0.2)
[2019-07-28 21:00] VITALS: BP 139/80
--- NOTE | 2019-07-28 21:20 | NUR ---
FSBS:[id number] ELECTRICAL INTEGRATOR AWARE
--- NOTE | 2019-07-28 21:22 | NUR ---
IV removed. Catheter intact and site benign. Pressure and 4x4 applied to site. No bleeding noted.
--- NOTE | 2019-07-28 21:27 | NUR ---
Patient discharged to home in stable condition. Written and verbal after care instructions given. Patient verbalizes understanding of instruction.
== END 2019-07-28 21:28 | disposition home or self-care (01) ==
LOC: ER 17:57
DX: E11.65 Type 2 diabetes mellitus with hyperglycemia (principal); G51.0 Bell's palsy; R42 Dizziness and giddiness; R51 Headache; E78.5 Hyperlipidemia, unspecified; F10.10 Alcohol abuse, uncomplicated; Y90.9 Presence of alcohol in blood, level not specified; Z79.899 Other long term (current) drug therapy
CPT/HCPCS: 36415; 70450; 80048; 81001; 82962 ×3; 85025; 96360; 96361; 99284; J7030 ×2; J7040; 81000-TC

== ENCOUNTER 2019-10-31 23:51 | Emergency (ER) | payer MEDICAID ==
[~2019-10-31] VITALS: Ht 182.9 cm; Wt 97.1 kg
--- NOTE | 2019-11-01 00:20 | NUR ---
PT AAOX4. AMBULATORY WITH STEADY GAIT. BIBS. C/O LUQ ABD PAIN X 1.5 HRS MANAGER GREEN. -NVD 05/14 SHARP. PT STATES HIS PANCREAS HURTS, "I AM DIABETIC." RR EVEN AND UNABLORED. VSS. NO ACUTE DISTRESS NOTED. AWAITING MD FOR EVAL.
--- NOTE | 2019-11-01 00:36 | NUR ---
STULL INSTALLER AT BEDSIDE FOR LAB COLLECTION
--- NOTE | 2019-11-01 00:37 | NUR ---
BG [id number] MD AWARE
[2019-11-01] MEDS ORDERED: MORPHINE SULFATE INJ 4 MG/ML DISP.SYRIN ONE (00:39)
[2019-11-01] MEDS ORDERED: ONDANSETRON HCL/PF 4 MG/2 ML VIAL ONE (00:39)
--- NOTE | 2019-11-01 00:50 | NUR ---
BROUGHT TO CT
[2019-11-01 00:53] LABS: BASOPHILS # (AUTO) 0.1 /CMM (0.0-0.2); BASOPHILS % (AUTO) 0.8 % (0.0-2.0); EOSINOPHILS % (AUTO) 1.9 % (0.0-6.0); HEMATOCRIT 47 % (39-51); HEMOGLOBIN 16.9 g/dL (13.5-17.5); LYMPHOCYTES # (AUTO) 3.4 /CMM (0.8-4.8); LYMPHOCYTES % (AUTO) 36.8 % (20.0-44.0); MEAN CORPUSCULAR HGB CONC 36 g/dl (31.0-36.0); MEAN CORPUSCULAR VOLUME 86 fL (80-96); MONOCYTES # (AUTO) 0.7 /CMM (0.1-1.30); MONOCYTES % (AUTO) 7.4 % (2.0-12.0); NEUTROPHILS % (AUTO) 53.1 % (43.0-81.0); PLATELET COUNT (AUTO) 272 /CMM (150-450); RED BLOOD CELL COUNT(AUTO) 5.52 MIL/uL (4.5-6.0); WHITE BLOOD COUNT (AUTO) 9.3 K/uL (4.3-11.0)
[2019-11-01 00:56] LABS: APPEARANCE,URINE Clear (CLEAR); BILIRUBIN,URINE Negative (NEGATIVE); BLOOD, URINE Trace-intact Ery/uL (NEGATIVE); COLOR,URINE Yellow (YELLOW); KETONES,URINE Trace (NEGATIVE); LEUKOCYTE ESTERASE ,URINE Negative (NEGATIVE); NITRITE, URINE Negative (NEGATIVE); PROTEIN,URINE Negative (NEGATIVE); UGLUCOSE >=1000 mg/dL (NEGATIVE); UROBILINOGEN,URINE 0.2 EU/dL (0.2)
[2019-11-01] MEDS ORDERED: IV NS 0.9% 1,000 ML BAG IV ONE (01:00)
[2019-11-01] MEDS ORDERED: MORPHINE SULFATE INJ 2 MG/ML DISP.SYRIN IV ONE (01:00)
[2019-11-01] MEDS ORDERED: ONDANSETRON HCL/PF 4 MG/2 ML VIAL IVP ONE (01:00)
[2019-11-01 01:01] LABS: CALCIUM, SERUM 8.7 mg/dL (8.5-10.1); POTASSIUM 3.7 mmol/L (3.5-5.1)
[2019-11-01 01:07] LABS: ALBUMIN 3.7 g/dL (3.4-5.0); BILIRUBIN,TOTAL 0.5 mg/dL (0.2-1.0); TOTAL PROTEIN, SERUM 7.8 g/dL (6.4-8.2)
[2019-11-01 01:28] LABS: BACTERIA,URINE Rare /HPF (None Seen); RBC,URINE 0-2 /HPF (0-2); SQUAMOUS EPITHELIAL CELL,UR Rare /HPF (None Seen); WBC,URINE 0-2 /HPF (0-3)
--- NOTE | 2019-11-01 01:31 | NUR ---
Patient is resting comfortably in bed with eyes closed. Easily aroused. VSS.
--- NOTE | 2019-11-01 01:48 | NUR ---
IV removed. Catheter intact and site benign. Pressure and 4x4 applied to site. No bleeding noted.
--- NOTE | 2019-11-01 01:56 | NUR ---
Patient discharged to home in stable condition. Written and verbal after care instructions given. Patient verbalizes understanding of instruction. Pt denies pain. Ambulated with steady gait. VSS.
[2019-11-01 01:57] VITALS: BP 124/76
== END 2019-11-01 01:57 | disposition home or self-care (01) ==
LOC: ER 23:51
DX: R10.12 Left upper quadrant pain (principal); E11.65 Type 2 diabetes mellitus with hyperglycemia; Z79.899 Other long term (current) drug therapy
CPT/HCPCS: 36415; 74176; 80048; 80076; 81001; 82962 ×2; 83690; 85025; 85730; 96361; 96374; 96375; 99284; J2270; J2405; J7030; 81000-TC

== ENCOUNTER 2019-12-03 13:54 | Inpatient (IN) | payer MEDICAID ==
[~2019-12-03] VITALS: Ht 182.9 cm; Wt 99.8 kg
--- NOTE | 2019-12-03 14:01 | NUR ---
PT AMBULATORY TO ER BED 11 C/O LUQ ABDOMINAL PAIN W/ NAUSEA AND VOMITING THAT STARTED 2 HOURS AGO. DENIES DYSURIA. STABLE VITALS. AWAITING MD NOLAN.
--- NOTE | 2019-12-03 14:11 | NUR ---
DR SARMIENTO AT BEDSIDE FOR EVAL.
--- NOTE | 2019-12-03 14:18 | NUR ---
IV LINE STARTED BLOOD DRAWN AND SENT TO LAB.
[2019-12-03] MEDS ORDERED: IV NS 0.9% 1,000 ML BAG IV ONE ×2 (14:30→15:30)
[2019-12-03 14:33] LABS: APPEARANCE,URINE Clear (CLEAR); BILIRUBIN,URINE Negative (NEGATIVE); BLOOD, URINE Negative Ery/uL (NEGATIVE); COLOR,URINE Yellow (YELLOW); KETONES,URINE Negative (NEGATIVE); LEUKOCYTE ESTERASE ,URINE Negative (NEGATIVE); NITRITE, URINE Negative (NEGATIVE); PH,URINE 5.5 (5.0-8.0); PROTEIN,URINE Negative (NEGATIVE); UGLUCOSE >=1000 mg/dL (NEGATIVE); UROBILINOGEN,URINE 0.2 EU/dL (0.2)
[2019-12-03 14:34] LABS: RBC,URINE 0-2 /HPF (0-2)
[2019-12-03 14:35] LABS: BACTERIA,URINE Rare /HPF (None Seen); SQUAMOUS EPITHELIAL CELL,UR Rare /HPF (None Seen); WBC,URINE 0-2 /HPF (0-3)
[2019-12-03 14:51] LABS: HEMATOCRIT 53 % (39-51); HEMOGLOBIN 18.1 g/dL (13.5-17.5); MEAN CORPUSCULAR HGB CONC 34 g/dl (31.0-36.0); MEAN CORPUSCULAR VOLUME 85 fL (80-96); RED BLOOD CELL COUNT(AUTO) 6.24 MIL/uL (4.5-6.0)
[2019-12-03 15:06] LABS: PLATELET COUNT (AUTO) 271 /CMM (150-450)
[2019-12-03] MEDS ORDERED: ONDANSETRON HCL/PF 4 MG/2 ML VIAL ONE (15:12)
[2019-12-03] MEDS ORDERED: KETOROLAC TROMETHAMINE INJ 30 MG/ML VIAL ONE (15:12)
[2019-12-03 15:16] LABS: ALBUMIN 4.2 g/dL (3.4-5.0); BILIRUBIN,TOTAL 0.4 mg/dL (0.2-1.0); CALCIUM, SERUM 10.4 mg/dL (8.5-10.1); POTASSIUM 4.2 mmol/L (3.5-5.1); TOTAL PROTEIN, SERUM 8.8 g/dL (6.4-8.2)
[2019-12-03] MEDS ORDERED: KETOROLAC TROMETHAMINE INJ 30 MG/ML VIAL IV ONE (15:30)
[2019-12-03] MEDS ORDERED: ONDANSETRON HCL/PF 4 MG/2 ML VIAL IVP ONE (15:30)
[2019-12-03 15:46] LABS: EOSINOPHILS % (MANUAL) 2 % (0-4); LYMPHOCYTES % (MANUAL) 24 % (16-48); MONOCYTES % (MANUAL) 3 % (0-11.0); NEUTROPHILS % (MANUAL) 71 (42-76)
--- NOTE | 2019-12-03 15:47 | NUR ---
CALLED [facility], PAGED JULIANNA CAMARA
[2019-12-03 16:00] VITALS: BP 139/91
--- NOTE | 2019-12-03 16:24 | NUR ---
[address] [place] [address]
--- NOTE | 2019-12-03 16:38 | NUR ---
REPORT GIVEN TO SHANA WHITAKER. AWAITING TRANSFER TO FLOOR.
[2019-12-03 17:00] VITALS: BP 139/91
[2019-12-03] MEDS ORDERED: ACETAMINOPHEN 325 MG TABLET PO PRN (17:00)
[2019-12-03] MEDS ORDERED: DEXTROSE 50%-WATER 50 ML DISP.SYRIN IV PRN (17:00)
[2019-12-03] MEDS ORDERED: INSULIN REGULAR, HUMAN 100 UNIT/ML 3 ML VIAL SQ PRN (17:00)
[2019-12-03] MEDS ORDERED: Z GUARD REMEDY 2 OZ OINT TP PRN (17:00)
[2019-12-03] MEDS: MORPHINE SULFATE INJ 2 MG/ML DISP.SYRIN IV PRN ×2 (17:47→21:47)
[2019-12-03] MEDS: BLOOD SUGAR DIAGNOSTIC 1 EACH STRIP IN SCH ×2 (17:51→21:35)
[2019-12-03] MEDS: IV NS 0.9% 1,000 ML IV PRN (17:54)
--- NOTE | 2019-12-03 18:11 | NUR ---
MS/RN - Admission Received patient from ER, alert and oriented x 4, c/o abdominal pain WI 8/10, Morphine 2 mg IVP given as ordered, denies n/v at this time, placed on NPO except meds. Admitted for Acute Pancreatitis under the care of Dr. Mijares. Patient oriented to room, all belongings accounted for. IVF NS at 125 ml/hr infusing well on the RAC with no s/s of infiltration. Skin assessment done, no skin breakdown seen, refused picture to be taken. Fall precautions initiated. Admission orders noted and carried out. Discussed plan of care with pt and in agreement.
--- NOTE | 2019-12-03 19:36 | NUR ---
MS RN OPENING NOTES PATIENT RECEIVED RESTING IN BED, A/O X4. STABLE ON RA WITH BREATHING EVEN AND UNLABORED, NO SOB NOTED. NO SIGNS OF ACUTE DISTRESS. NO COMPLAINTS OF PAIN OR DISCOMFORT AT THE MOMENT. AMBULATORY AND STABLE. IV LOCATED ON R AC #18 RUNNING NS @ 125 ML/ HR. PATIENT REMAINS NPO EXCEPT MEDS. SAFETY PRECAUTIONS IN PLACE WITH BED IN LOWEST POSITION, CALL LIGHT WITHIN REACH, BREAKS ON, AND SIDE RAILS UP. WILL CONTINUE TO MONITOR THROUGHOUT THE NIGHT.
[2019-12-03] MEDS: ONDANSETRON HCL/PF 4 MG/2 ML VIAL IVP PRN (19:50)
[2019-12-03 19:52] VITALS: BP 126/71
[2019-12-03] MEDS: GEMFIBROZIL 600 MG TABLET PO SCH (21:29)
--- NOTE | 2019-12-03 22:00 | NUR ---
MS RN NOTES NO INSULIN COVERAGE WITH FSBS 137 DUE TO PATIENT NPO. WILL CONTINUE TO MONITOR
[2019-12-04] MEDS: MORPHINE SULFATE INJ 2 MG/ML DISP.SYRIN IV PRN ×5 (02:02→21:13)
[2019-12-04] MEDS: IV NS 0.9% 1,000 ML IV PRN ×2 (02:10→10:20)
[2019-12-04] MEDS: ONDANSETRON HCL/PF 4 MG/2 ML VIAL IVP PRN ×2 (06:26→15:08)
[2019-12-04] MEDS: BLOOD SUGAR DIAGNOSTIC 1 EACH STRIP IN SCH ×2 (06:35→11:28)
--- NOTE | 2019-12-04 06:42 | NUR ---
MS RN NOTES NO INSULIN COVERAGE FOR FSBS 167 DUE TO PATIENT BEING NPO. WILL CONTINUE TO MONITOR.
--- NOTE | 2019-12-04 06:59 | NUR ---
MS RN CLOSING NOTES PATIENT RESTING IN BED, A/O X4. STABLE ON RA WITH BREATHING EVEN AND UNLABORED, NO SOB NOTED. NO SIGNS OF ACUTE DISTRESS. NO COMPLAINTS OF PAIN OR DISCOMFORT AT THE MOMENT. AMBULATORY AND STABLE. IV LOCATED ON R AC #18 RUNNING NS @ 125 ML/ HR. PATIENT REMAINS NPO EXCEPT MEDS. SAFETY PRECAUTIONS IN PLACE WITH BED IN LOWEST POSITION, CALL LIGHT WITHIN REACH, BREAKS ON, AND SIDE RAILS UP. ALL NEEDS ATTENDED TO. PATIENT WAS KEPT CLEAN AND DRY THROUGHOUT THE NIGHT. WILL ENDORSE TO ONCOMING SHIFT ABOUT ANNA.
[2019-12-04 07:11] LABS: ALBUMIN 3.4 g/dL (3.4-5.0); BILIRUBIN,TOTAL 0.5 mg/dL (0.2-1.0); CALCIUM, SERUM 8.8 mg/dL (8.5-10.1); CREATININE 0.9 mg/dL (0.6-1.3); MAGNESIUM 1.9 mg/dL (1.8-2.4); PHOSPHORUS 4.3 mg/dL (2.5-4.9); POTASSIUM 3.8 mmol/L (3.5-5.1); TOTAL PROTEIN, SERUM 7.3 g/dL (6.4-8.2)
[2019-12-04 07:21] LABS: BASOPHILS % (AUTO) 0.4 % (0.0-2.0); EOSINOPHILS % (AUTO) 2.2 % (0.0-6.0); HEMATOCRIT 48 % (39-51); HEMOGLOBIN 16.5 g/dL (13.5-17.5); LYMPHOCYTES # (AUTO) 3.3 /CMM (0.8-4.8); LYMPHOCYTES % (AUTO) 34.1 % (20.0-44.0); MEAN CORPUSCULAR HGB CONC 34 g/dl (31.0-36.0); MEAN CORPUSCULAR VOLUME 85 fL (80-96); MONOCYTES # (AUTO) 0.8 /CMM (0.1-1.30); MONOCYTES % (AUTO) 8.2 % (2.0-12.0); NEUTROPHILS # (AUTO) 5.3 /CMM (1.8-8.9); NEUTROPHILS % (AUTO) 55.1 % (43.0-81.0); PLATELET COUNT (AUTO) 230 /CMM (150-450); RED BLOOD CELL COUNT(AUTO) 5.62 MIL/uL (4.5-6.0); WHITE BLOOD COUNT (AUTO) 9.7 K/uL (4.3-11.0)
[2019-12-04 07:28] LABS: THYROID STIMULATING HORMONE 1.372 uIU/mL (0.358-3.74)
[2019-12-04 08:00] VITALS: BP 100/66
[2019-12-04] MEDS: GEMFIBROZIL 600 MG TABLET PO SCH ×2 (08:04→21:13)
[2019-12-04] MEDS: PANTOPRAZOLE 40 MG VIAL IV SCH (08:04)
--- NOTE | 2019-12-04 09:11 | NUR ---
MS RN- OPENING NOTES Received patient from maintenance technician 3rd shift nurse in bed, awake, conscious, coherent and cooperative. With IVF NS AT 125 ml/hr infusing well at right AC.
[2019-12-04] MEDS ORDERED: DEXTROSE 50%-WATER 50 ML DISP.SYRIN IV PRN (12:00)
[2019-12-04] MEDS: BLOOD SUGAR DIAGNOSTIC 1 EACH STRIP VI SCH ×3 (12:13→21:30)
[2019-12-04] MEDS: *INSULIN REGULAR(HUMULIN R)HUM 100 UNIT/ML VIAL SQ PRN ×2 (12:14→21:32)
[2019-12-04] MEDS: IV D5/0.45 NACL 1,000 ML IV PRN ×2 (12:37→21:14)
--- NOTE | 2019-12-04 15:05 | NUR ---
rn notes administered morphine sulfate 2 mg/ml iv push for pain upper epigastric 8/10 per patient request, also administered Zofran 4 mg/ml iv push for nausea. v/s taken bp-116/67,p-65,r-19. call light within to reach. safety precaution maintained all the time.
[2019-12-04] MEDS: INSULIN REGULAR, HUMAN 100 UNIT/ML 3 ML VIAL SQ PRN (17:56)
--- NOTE | 2019-12-04 18:58 | NUR ---
MS RN- CLOSING NOTES Received patient to retail shift supervisor nurse, in bed, awake, conscious, coherent and cooperative. IVF D5 1/2 NS at 125 ml/hr, Clear liquid diet well tolerated.
--- NOTE | 2019-12-04 19:29 | NUR ---
MS RN OPENING NOTES PATIENT RECEIVED RESTING IN BED, A/O X4. STABLE ON RA WITH BREATHING EVEN AND UNLABORED, NO SOB NOTED. NO SIGNS OF ACUTE DISTRESS. NO COMPLAINTS OF PAIN OR DISCOMFORT. IV LOCATED ON RAC #18 RUNNING D51/2 NS @ 125 ML/HR. SAFETY PRECAUTIONS IN PLACE WITH BED IN LOWEST POSITION, CALL LIGHT WITHIN REACH, BREAKS ON, SIDE RAILS UP. WILL CONTINUE TO MONITOR THROUGHOUT THE NIGHT.
[2019-12-04 20:25] VITALS: BP 103/56
[2019-12-05] MEDS: MORPHINE SULFATE INJ 2 MG/ML DISP.SYRIN IV PRN ×2 (01:20→08:08)
[2019-12-05] MEDS: IV D5/0.45 NACL 1,000 ML IV PRN (05:30)
--- NOTE | 2019-12-05 06:27 | NUR ---
MS RN CLOSING NOTES PATIENT RESTING IN BED, A/O X4. STABLE ON RA WITH BREATHING EVEN AND UNLABORED, NO SOB NOTED. NO SIGNS OF ACUTE DISTRESS. NO COMPLAINTS OF PAIN OR DISCOMFORT AT THE MOMENT. AMBULATORY AND STABLE. IV LOCATED ON R AC #18 RUNNING NS @ 125 ML/ HR. PAIN MANAGEMENT. SAFETY PRECAUTIONS IN PLACE WITH BED IN LOWEST POSITION, CALL LIGHT WITHIN REACH, BREAKS ON, AND SIDE RAILS UP. ALL NEEDS ATTENDED TO. PATIENT WAS KEPT CLEAN AND DRY THROUGHOUT THE NIGHT. WILL ENDORSE TO ONCOMING SHIFT ABOUT ANNA
[2019-12-05] MEDS: BLOOD SUGAR DIAGNOSTIC 1 EACH STRIP VI SCH (06:45)
[2019-12-05] MEDS: INSULIN REGULAR, HUMAN 100 UNIT/ML 3 ML VIAL SQ PRN (06:46)
[2019-12-05 06:55] LABS: BASOPHILS % (AUTO) 0.4 % (0.0-2.0); EOSINOPHILS % (AUTO) 4.3 % (0.0-6.0); HEMATOCRIT 47 % (39-51); HEMOGLOBIN 16.1 g/dL (13.5-17.5); LYMPHOCYTES # (AUTO) 2.6 /CMM (0.8-4.8); LYMPHOCYTES % (AUTO) 41.4 % (20.0-44.0); MEAN CORPUSCULAR HGB CONC 34 g/dl (31.0-36.0); MEAN CORPUSCULAR VOLUME 85 fL (80-96); MONOCYTES # (AUTO) 0.7 /CMM (0.1-1.30); MONOCYTES % (AUTO) 10.7 % (2.0-12.0); NEUTROPHILS # (AUTO) 2.7 /CMM (1.8-8.9); NEUTROPHILS % (AUTO) 43.2 % (43.0-81.0); PLATELET COUNT (AUTO) 226 /CMM (150-450); RED BLOOD CELL COUNT(AUTO) 5.54 MIL/uL (4.5-6.0); WHITE BLOOD COUNT (AUTO) 6.2 K/uL (4.3-11.0)
[2019-12-05 07:05] LABS: CALCIUM, SERUM 9.1 mg/dL (8.5-10.1); CREATININE 0.9 mg/dL (0.6-1.3); MAGNESIUM 2.2 mg/dL (1.8-2.4); PHOSPHORUS 4.5 mg/dL (2.5-4.9); POTASSIUM 3.9 mmol/L (3.5-5.1)
[2019-12-05 08:00] VITALS: BP 103/67
--- NOTE | 2019-12-05 08:00 | NUR ---
MS SHERMAN AM NOTES PATIENT RESTING IN BED, A/O X4. STABLE ON RA WITH BREATHING EVEN AND UNLABORED, NO SOB NOTED. NO SIGNS OF ACUTE DISTRESS. NO COMPLAINTS OF PAIN OR DISCOMFORT AT THE MOMENT. AMBULATORY AND STABLE. IV LOCATED ON R AC #18 RUNNING NS @ 125 ML/ HR. PAIN MANAGEMENT. SAFETY PRECAUTIONS IN PLACE WITH BED IN LOWEST POSITION, CALL LIGHT WITHIN REACH, BREAKS ON, AND SIDE RAILS UP. PATIENT WAS KEPT CLEAN AND DRY.
[2019-12-05] MEDS: PANTOPRAZOLE 40 MG VIAL IV SCH (08:05)
[2019-12-05] MEDS: GEMFIBROZIL 600 MG TABLET PO SCH (08:06)
--- NOTE | 2019-12-05 12:00 | NUR ---
DISCHARGED PT HOME WITH STABLE V/S.DENYING ANY PAIN OR DISTRESS. IV H/L REMOVED TO RT AC WITH NO BLEEDING NOTED.REFUSED ACCUCHECK. NO S/S OF HYPO/HYPERGLYCEMIA.
== END 2019-12-05 12:00 | disposition home or self-care (01) | DRG 282 ==
LOC: ER 13:57 → MED 16:30 → MEDSG2 12-04 13:21
PROVIDERS: ADMIT Hospitalist; ATTEND Nurse Practitioner Acute Care
DX: K85.90 Acute pancreatitis without necrosis or infection, unspecified (principal); D75.1 Secondary polycythemia; E11.65 Type 2 diabetes mellitus with hyperglycemia; E86.0 Dehydration; E87.1 Hypo-osmolality and hyponatremia; K21.9 Gastro-esophageal reflux disease without esophagitis; E78.1 Pure hyperglyceridemia; K86.1 Other chronic pancreatitis; R74.0 Nonspecific elevation of levels of transaminase and lactic acid dehydrogenase [LDH]; Z91.14 Patient's other noncompliance with medication regimen
CPT/HCPCS: 36415; 80048-TC; 80053-TC; 80061-TC; 80076-TC; 81000-TC; 82962-TC; 83690-TC; 83735-TC; 84100-TC; 84443-TC; 84478-TC; 85025-TC; 87081-TC; A4216; C9113; G0378; J1815; J1885; J2270; J2405; J3490; J7030

== ENCOUNTER 2019-12-20 20:06 | Emergency (ER) | payer MEDICAID ==
[~2019-12-20] VITALS: Ht 182.9 cm; Wt 93.4 kg
[2019-12-20] MEDS ORDERED: ONDANSETRON HCL/PF 4 MG/2 ML VIAL ONE (22:24)
[2019-12-20] MEDS ORDERED: MORPHINE SULFATE INJ 4 MG/ML DISP.SYRIN ONE (22:25)
[2019-12-20 22:27] LABS: BASOPHILS # (AUTO) 0.1 /CMM (0.0-0.2); EOSINOPHILS % (AUTO) 1.2 % (0.0-6.0); HEMATOCRIT 49 % (39-51); HEMOGLOBIN 17.1 g/dL (13.5-17.5); LYMPHOCYTES # (AUTO) 3.6 /CMM (0.8-4.8); LYMPHOCYTES % (AUTO) 30.3 % (20.0-44.0); MEAN CORPUSCULAR HGB CONC 35 g/dl (31.0-36.0); MEAN CORPUSCULAR VOLUME 86 fL (80-96); MONOCYTES # (AUTO) 0.8 /CMM (0.1-1.30); MONOCYTES % (AUTO) 6.9 % (2.0-12.0); NEUTROPHILS # (AUTO) 7.3 /CMM (1.8-8.9); NEUTROPHILS % (AUTO) 60.6 % (43.0-81.0); PLATELET COUNT (AUTO) 276 /CMM (150-450); RED BLOOD CELL COUNT(AUTO) 5.66 MIL/uL (4.5-6.0)
[2019-12-20] MEDS ORDERED: IV NS 0.9% 1,000 ML BAG IV ONE (22:30)
[2019-12-20] MEDS ORDERED: MORPHINE SULFATE INJ 2 MG/ML DISP.SYRIN IV ONE (22:30)
[2019-12-20] MEDS ORDERED: ONDANSETRON HCL/PF 4 MG/2 ML VIAL IVP ONE (22:30)
--- NOTE | 2019-12-20 22:32 | NUR ---
BIBS TO ER BED 2. AAOX4. NOT IN RESP DISTRESS. AMBULATORY. CAME IN FOR RUQ ABD PAIN EXTENDING AROUND TO BACK. RATES PAIN 10/10 SHARP. PT STATES THAT HE HAS PACREATITIS AND FEELS HE THAT PAIN IS CAUSE BY THE PANCREATITIS. PT REPORTS NAUSEA AND VOMITING. MD WAS AT BEDSIDE FOR EVAL. IV LINE OBTAINED ON THE L AC 18G. WILL CONTINUE TO MONITOR
[2019-12-20 22:41] LABS: ALBUMIN 3.9 g/dL (3.4-5.0); BILIRUBIN,TOTAL 0.7 mg/dL (0.2-1.0); CALCIUM, SERUM 8.6 mg/dL (8.5-10.1); CREATININE 0.7 mg/dL (0.6-1.3); POTASSIUM 3.6 mmol/L (3.5-5.1); TOTAL PROTEIN, SERUM 8.4 g/dL (6.4-8.2)
--- NOTE | 2019-12-21 00:24 | NUR ---
Patient discharged to home in stable condition. Written and verbal after care instructions given. Patient verbalizes understanding of instruction.IV removed. Catheter intact and site benign. Pressure and 4x4 applied to site. No bleeding noted. Pt ambulatory with a steady gait
[2019-12-21 00:25] VITALS: BP 114/63
== END 2019-12-21 00:25 | disposition home or self-care (01) ==
LOC: ER 20:12
DX: K85.90 Acute pancreatitis without necrosis or infection, unspecified (principal); R11.2 Nausea with vomiting, unspecified; E11.9 Type 2 diabetes mellitus without complications; Z79.899 Other long term (current) drug therapy
CPT/HCPCS: 36415; 74176; 80048; 80076; 83690; 85025; 85730; 96361; 96374; 96375; 99284; J2270; J2405; J7030

== ENCOUNTER 2020-01-28 21:45 | Inpatient (IN) | payer MEDICAID ==
[~2020-01-28] VITALS: Ht 188 cm; Wt 82.3 kg
--- NOTE | 2020-01-28 22:09 | NUR ---
BIBS FOR C/O ABD AND LOWER BACK PAIN X 1 DAY +NAUSEA, - VOMITING. LBM: YESTERDAY, pt awake, alert, -sob, vss, placed on montior, pending md downing
[2020-01-28] MEDS ORDERED: ONDANSETRON HCL/PF 4 MG/2 ML VIAL ONE (22:23)
[2020-01-28] MEDS ORDERED: MORPHINE SULFATE INJ 4 MG/ML DISP.SYRIN ONE (22:24)
[2020-01-28 22:29] LABS: BASOPHILS # (AUTO) 0.1 /CMM (0.0-0.2); BASOPHILS % (AUTO) 0.7 % (0.0-2.0); HEMATOCRIT 50 % (39-51); LYMPHOCYTES # (AUTO) 3.7 /CMM (0.8-4.8); LYMPHOCYTES % (AUTO) 21.3 % (20.0-44.0); MEAN CORPUSCULAR HGB CONC 40 g/dl (31.0-36.0); MEAN CORPUSCULAR VOLUME 87 fL (80-96); MONOCYTES % (AUTO) 5.6 % (2.0-12.0); NEUTROPHILS # (AUTO) 12.5 /CMM (1.8-8.9); NEUTROPHILS % (AUTO) 71.4 % (43.0-81.0); PLATELET COUNT (AUTO) 334 /CMM (150-450); RED BLOOD CELL COUNT(AUTO) 5.72 MIL/uL (4.5-6.0); WHITE BLOOD COUNT (AUTO) 17.5 K/uL (4.3-11.0)
[2020-01-28 22:30] LABS: HEMOGLOBIN 19.8 g/dL (13.5-17.5)
[2020-01-28] MEDS ORDERED: MORPHINE SULFATE INJ 2 MG/ML DISP.SYRIN IV ONE (22:30)
[2020-01-28] MEDS ORDERED: IV NS 0.9% 1,000 ML BAG IV ONE (22:30)
[2020-01-28] MEDS ORDERED: ONDANSETRON HCL/PF 4 MG/2 ML VIAL IVP ONE (22:30)
[2020-01-28] MEDS ORDERED: KETOROLAC TROMETHAMINE INJ 30 MG/ML VIAL ONE (22:30)
--- NOTE | 2020-01-28 22:30 | NUR ---
toradol 30 mg ivp verbal order
[2020-01-28 22:33] LABS: APPEARANCE,URINE Clear (CLEAR); BILIRUBIN,URINE Negative (NEGATIVE); BLOOD, URINE Trace-lysed Ery/uL (NEGATIVE); COLOR,URINE Yellow (YELLOW); KETONES,URINE Negative (NEGATIVE); LEUKOCYTE ESTERASE ,URINE Negative (NEGATIVE); NITRITE, URINE Negative (NEGATIVE); PH,URINE 5.5 (5.0-8.0); PROTEIN,URINE Negative (NEGATIVE); UGLUCOSE 500 MG/DL mg/dL (NEGATIVE); UROBILINOGEN,URINE 0.2 EU/dL (0.2)
[2020-01-28 22:53] LABS: EOSINOPHILS % (MANUAL) 1 % (0-4); LYMPHOCYTES % (MANUAL) 19 % (16-48); MONOCYTES % (MANUAL) 3 % (0-11.0); NEUTROPHILS % (MANUAL) 77 (42-76)
[2020-01-28 23:00] LABS: BACTERIA,URINE Rare /HPF (None Seen); SQUAMOUS EPITHELIAL CELL,UR Few /HPF (None Seen); WBC,URINE NONE SEEN /HPF (0-3)
[2020-01-28 23:09] LABS: CALCIUM, SERUM 9.2 mg/dL (8.5-10.1); CREATININE 1.1 mg/dL (0.6-1.3); POTASSIUM 4.1 mmol/L (3.5-5.1)
[2020-01-28 23:14] LABS: BILIRUBIN,TOTAL 0.5 mg/dL (0.2-1.0); TOTAL PROTEIN, SERUM 8.8 g/dL (6.4-8.2)
[2020-01-28] MEDS ORDERED: KETOROLAC TROMETHAMINE INJ 30 MG/ML VIAL IV ONE (23:30)
[2020-01-29] MEDS ORDERED: HYDROMORPHONE 1 MG/1 ML DISP.SYRIN ONE (00:25)
[2020-01-29] MEDS ORDERED: HYDROMORPHONE 1 MG/1 ML DISP.SYRIN IV ONE (00:30)
[2020-01-29] MEDS ORDERED: HYDROCODONE/APAP 5/325MG 1 EACH TABLET PO PRN (01:00)
[2020-01-29] MEDS ORDERED: ZOLPIDEM TARTRATE 5 MG TABLET PO PRN (01:00)
[2020-01-29] MEDS ORDERED: ACETAMINOPHEN 325 MG TABLET PO PRN (01:00)
[2020-01-29] MEDS ORDERED: Z GUARD REMEDY 2 OZ OINT TP PRN (01:00)
[2020-01-29] MEDS ORDERED: MAGNESIUM HYDROXIDE 30 ML UDC PO PRN (01:00)
[2020-01-29] MEDS ORDERED: ONDANSETRON HCL/PF 4 MG/2 ML VIAL IVP PRN (01:00)
[2020-01-29] MEDS ORDERED: MAG HYDROX/AL HYDROX/SIMETH 30 ML UDC PO PRN (01:00)
--- NOTE | 2020-01-29 01:20 | NUR ---
report given to dane chu for galen, pt will be transported to 3rd floor
--- NOTE | 2020-01-29 01:54 | NUR ---
MS RN ADMITTING NOTES RECEIVED PT FROM ER VIA WHEELCHAIR. PT A/O X3. RESPIRATIONS EVEN AND UNLABORED WITH NO S/S OF ACUTE DISTRESS OR SOB NOTED. NO COMPLAINTS OF PAIN AT THIS TIME. ORIENTED PT TO ROOM AND STAFF. SAFETY MEASURES IN PLACE WITH BED IN LOWEST LOCKED POSITION WITH SIDE RAILS UP X2. CALL LIGHT WITHIN REACH. WILL CONTINUE TO MONITOR.
--- NOTE | 2020-01-29 02:00 | NUR ---
MS RN NOTES PT REFUSED TO HAVE WALLET LOCKED UP WELL COUNT ITEMS WITHIN WALLET. WILL CONTINUE TO MONITOR.
[2020-01-29] MEDS: IV NS 0.9% 1,000 ML IV SCH ×2 (02:04→08:24)
[2020-01-29] MEDS: MORPHINE SULFATE INJ 2 MG/ML DISP.SYRIN IV PRN ×2 (03:18→08:58)
[2020-01-29] MEDS ORDERED: MORPHINE SULFATE INJ 2 MG/ML DISP.SYRIN IV ONE (06:30)
--- NOTE | 2020-01-29 07:30 | NUR ---
MS/RN Opening note Patient received from security shift manager. A/O X4, vital signs stable, pain level currently 10/10, morphine 1mg administered at 0700. NPO at this time due to pancreatitis. Safety measures in place, call light within reach, will continue to monitor and ensure safety.
--- NOTE | 2020-01-29 07:49 | NUR ---
MS RN NOTES PT IN BED AWAKE AND ABLE TO MAKE NEEDS KNOWN. PT A/O X3. RESPIRATIONS EVEN AND UNLABORED WITH NO S/S OF ACUTE DISTRESS OR SOB NOTED THROUGHOUT SHIFT. SAFETY MEASURES IN PLACE WITH BED IN LOWEST LOCKED POSITION WITH SIDE RAILS UP X2. CALL LIGHT WITHIN REACH. WILL ENDORSE TO ONCOMING NURSE FOR ANNA.
[2020-01-29 08:00] VITALS: BP 124/79
--- NOTE | 2020-01-29 08:25 | NUR ---
MS/RN Medications Morning medications held as patient NPO.
--- NOTE | 2020-01-29 08:43 | NUR ---
MS/RN S/B Dr Mijares Seen by DNP - made aware that patient is requesting pain medication be changed from morphine to dilaudid.
[2020-01-29] MEDS ORDERED: METFORMIN 500 MG TABLET PO SCH (09:00)
[2020-01-29] MEDS ORDERED: GEMFIBROZIL 600 MG TABLET PO SCH (09:00)
--- NOTE | 2020-01-29 09:48 | NUR ---
MS/RN Pain / Nausea Patient continues to complain of pain, insisting that he needs pain medication to be changed from morphine to dilaudid, stating that he was given dilaudid in ER and on previous admissions and this is the only medication that works for him. Vomited 100ml undigested food. Dr Mijares already aware and no orders for medication to be changed.
--- NOTE | 2020-01-29 11:30 | NUR ---
MS/RN AMA Patient left unit against medical advice at 1130, unhappy that he was not able to receive dilaudid and only prescribed morphine. Explained to patient that this was the only medication ordered and that MD was aware of his request to change medication but there was no order at this time. Patient educated about the risks involved in leaving AMA, but still insisting in leaving. Heplock and name band removed. Refused to sign any paperwork, including personal belongings list and against medical advice paper. MD and nursing blood bank supervisor made aware.
--- NOTE | 2020-01-29 12:06 | NUR ---
MS/RN Incident report Incident report filed, ID [id number]
== END 2020-01-29 11:30 | disposition left against medical advice (07) | DRG 282 ==
LOC: ER 21:46 → MED 01-29 01:04
PROVIDERS: ADMIT Hospitalist; ATTEND Hospitalist
DX: K85.20 Alcohol induced acute pancreatitis without necrosis or infection (principal); E11.65 Type 2 diabetes mellitus with hyperglycemia; E87.1 Hypo-osmolality and hyponatremia; E78.5 Hyperlipidemia, unspecified; E86.1 Hypovolemia; F17.210 Nicotine dependence, cigarettes, uncomplicated; I10 Essential (primary) hypertension; Z91.19 Patient's noncompliance with other medical treatment and regimen; Z79.84 Long term (current) use of oral hypoglycemic drugs; D72.829 Elevated white blood cell count, unspecified; K86.0 Alcohol-induced chronic pancreatitis; Z76.5 Malingerer [conscious simulation]
CPT/HCPCS: 36415; 80048-TC; 80076-TC; 81000-TC; 82962-TC; 83690-TC; 85025-TC; 87081-TC; 87086-TC; G0378; J1170; J1885; J2270; J2405; J7030

== ENCOUNTER 2021-07-05 21:52 | Emergency (ER) | payer MEDICAID ==
[~2021-07-05] VITALS: Ht 182.9 cm; Wt 76.2 kg
--- NOTE | 2021-07-05 22:00 | NUR ---
pt bibself c/o ruq pain +vomiting. Pt aaox4 breathing evenly and unlabored. pt aggressive and yelling "dont you know i have panreatitis?" Pt attached to monitor and pox. at bedside. Lt ac 20g initiated blood drawn and sent to lab. Pt given blanket and call light within reach
[2021-07-05] MEDS ORDERED: ONDANSETRON HCL/PF 4 MG/2 ML VIAL ONE (22:52)
[2021-07-05] MEDS ORDERED: MORPHINE SULFATE INJ 4 MG/ML DISP.SYRIN ONE (22:52)
[2021-07-05] MEDS: MORPHINE SULFATE INJ 2 MG/ML DISP.SYRIN IV ONE (23:00)
[2021-07-05] MEDS: IV NS 0.9% 1,000 ML BAG IV ONE (23:00)
[2021-07-05] MEDS: ONDANSETRON HCL/PF 4 MG/2 ML VIAL IVP ONE (23:00)
[2021-07-05 23:13] LABS: BASOPHILS % (AUTO) 0.3 % (0.0-2.0); EOSINOPHILS % (AUTO) 1.3 % (0.0-6.0); HEMATOCRIT 49 % (39-51); HEMOGLOBIN 16.6 g/dL (13.5-17.5); LYMPHOCYTES # (AUTO) 1.8 K/uL (0.8-4.8); MEAN CORPUSCULAR HGB CONC 34 g/dl (31.0-36.0); MEAN CORPUSCULAR VOLUME 91 fL (80-96); MONOCYTES % (AUTO) 6.8 % (2.0-12.0); NEUTROPHILS % (AUTO) 79.6 % (43.0-81.0); PLATELET COUNT (AUTO) 308 K/uL (150-450); RED BLOOD CELL COUNT(AUTO) 5.41 MIL/uL (4.5-6.0)
[2021-07-05 23:42] LABS: ALBUMIN 3.8 g/dL (3.4-5.0); BILIRUBIN,DIRECT 0.1 mg/dL (0.0-0.2); BILIRUBIN,TOTAL 0.2 mg/dL (0.2-1.0); CALCIUM, SERUM 8.4 mg/dL (8.5-10.1); CREATININE 0.8 mg/dL (0.6-1.3); POTASSIUM 3.7 mmol/L (3.5-5.1); TOTAL PROTEIN, SERUM 7.7 g/dL (6.4-8.2)
[2021-07-05] MEDS: FAMOTIDINE/PF INJ 20 MG/2 ML VIAL IV ONE (23:50)
[2021-07-05] MEDS ORDERED: FAMOTIDINE/PF INJ 20 MG/2 ML VIAL IV ONE (23:50)
[2021-07-06 00:05] LABS: ALCOHOL, BLOOD < 3 mg/dL (0-0)
--- NOTE | 2021-07-06 00:14 | NUR ---
returned from ct
--- NOTE | 2021-07-06 02:11 | NUR ---
CALLED LAB TO F/U ON TROP RESULT, PER LAB, RUNNING AT THE MOMENT
[2021-07-06] MEDS ORDERED: FAMO-131 PO (02:34)
[2021-07-06 02:45] VITALS: BP 131/80
--- NOTE | 2021-07-06 02:47 | NUR ---
Patient discharged to home in stable condition. Written and verbal after care instructions given. Patient verbalizes understanding of instruction. IV removed. Catheter intact and site benign. Pressure and 4x4 applied to site. No bleeding noted.PT ambulatory with a steady gait
== END 2021-07-06 02:47 | disposition home or self-care (01) ==
LOC: ER 21:56
DX: R10.12 Left upper quadrant pain (principal); R10.13 Epigastric pain; K59.00 Constipation, unspecified; F10.10 Alcohol abuse, uncomplicated; R94.31 Abnormal electrocardiogram [ECG] [EKG]; R45.6 Violent behavior; I10 Essential (primary) hypertension; E78.5 Hyperlipidemia, unspecified; E11.9 Type 2 diabetes mellitus without complications; F17.200 Nicotine dependence, unspecified, uncomplicated; Z79.84 Long term (current) use of oral hypoglycemic drugs; Z79.899 Other long term (current) drug therapy; Y90.0 Blood alcohol level of less than 20 mg/100 ml
CPT/HCPCS: 36415; 74176; 80048; 80076; 80320; 83690; 84484; 85025; 93005; 96361; 96374; 96375; 99285; J2270; J2405; J3490; J7030; G0480

== ENCOUNTER 2021-10-26 16:49 | Emergency (ER) | payer MEDICAID ==
[~2021-10-26] VITALS: Ht 182.9 cm; Wt 70.3 kg
[~2021-10-26 16:49] MED LIST changes: +FAMO-131 PO
[2021-10-26] MEDS ORDERED: IV NS 0.9% 1,000 ML BAG IV ONE (17:30)
[2021-10-26] MEDS ORDERED: KETOROLAC TROMETHAMINE INJ 30 MG/ML VIAL IV ONE (17:30)
[2021-10-26] MEDS ORDERED: KETOROLAC TROMETHAMINE INJ 30 MG/ML VIAL ONE (17:32)
[2021-10-26 17:35] LABS: BASOPHILS # (AUTO) 0.1 K/uL (0.0-0.2); BASOPHILS % (AUTO) 0.6 % (0.0-2.0); EOSINOPHILS % (AUTO) 2.3 % (0.0-6.0); HEMATOCRIT 43 % (39-51); HEMOGLOBIN 14.6 g/dL (13.5-17.5); LYMPHOCYTES # (AUTO) 2.9 K/uL (0.8-4.8); MEAN CORPUSCULAR HGB CONC 34 g/dl (31.0-36.0); MEAN CORPUSCULAR VOLUME 89 fL (80-96); MONOCYTES # (AUTO) 0.9 K/uL (0.1-1.30); MONOCYTES % (AUTO) 9.6 % (2.0-12.0); NEUTROPHILS # (AUTO) 5.5 K/uL (1.8-8.9); NEUTROPHILS % (AUTO) 57.5 % (43.0-81.0); PLATELET COUNT (AUTO) 271 K/uL (150-450); RED BLOOD CELL COUNT(AUTO) 4.85 MIL/uL (4.5-6.0); WHITE BLOOD COUNT (AUTO) 9.6 K/uL (4.3-11.0)
[2021-10-26 17:42] LABS: BILIRUBIN,URINE NEGATIVE (NEGATIVE); COLOR,URINE YELLOW (YELLOW); LEUKOCYTE ESTERASE ,URINE NEGATIVE (NEGATIVE); NITRITE, URINE NEGATIVE (NEGATIVE); PH,URINE 6.5 (5.0-8.0); PROTEIN,URINE NEGATIVE (NEGATIVE); UGLUCOSE NEGATIVE (NEGATIVE); UROBILINOGEN,URINE 0.2 EU/dL (0.2)
[2021-10-26 17:51] LABS: CALCIUM, SERUM 9.1 mg/dL (8.5-10.1); CREATININE 0.9 mg/dL (0.6-1.3); POTASSIUM 3.9 mmol/L (3.5-5.1)
[2021-10-26 17:57] LABS: ALBUMIN 3.7 g/dL (3.4-5.0); BILIRUBIN,DIRECT 0.1 mg/dL (0.0-0.2); BILIRUBIN,TOTAL 0.5 mg/dL (0.2-1.0); TOTAL PROTEIN, SERUM 7.6 g/dL (6.4-8.2)
[2021-10-26] MEDS ORDERED: PROCHLORPERAZINE EDISYLATE 10 MG/2 ML VIAL IVP ONE (18:00)
[2021-10-26] MEDS ORDERED: PROCHLORPERAZINE EDISYLATE 10 MG/2 ML VIAL ONE (18:19)
[2021-10-26 20:49] VITALS: BP 108/68
--- NOTE | 2021-10-26 20:49 | NUR ---
Patient discharged to home in stable condition. Written and verbal after care instructions given. Patient verbalizes understanding of instruction.IV removed. Catheter intact and site benign. Pressure and 4x4 applied to site. No bleeding noted.
== END 2021-10-26 20:50 | disposition home or self-care (01) ==
LOC: ER 16:50
DX: M79.10 Myalgia, unspecified site (principal); R50.9 Fever, unspecified; R51.9 Headache, unspecified; Z20.822 Contact with and (suspected) exposure to COVID-19; Z91.14 Patient's other noncompliance with medication regimen; E11.9 Type 2 diabetes mellitus without complications; Z79.84 Long term (current) use of oral hypoglycemic drugs; E78.5 Hyperlipidemia, unspecified; I10 Essential (primary) hypertension; Z79.899 Other long term (current) drug therapy
CPT/HCPCS: 36415; 71045; 80048; 80076; 81003; 83690; 85025; 87426; 96361; 96374; 96375; 99284; C9803; J0780; J1885; J7030

== ENCOUNTER 2022-02-18 01:41 | Emergency (ER) | payer MEDICAID ==
[~2022-02-18] VITALS: Ht 182.9 cm; Wt 70.3 kg
--- NOTE | 2022-02-18 02:40 | NUR ---
BIBSELF C/O ALMANZA, RIGHT ARM AND SHOULDER PAIN, BODY ITCH AFTER GETTING 3RD COVID SHOT DONE ON MONDAY. PLACED IN RM 19. VITALS CHECKED.
--- NOTE | 2022-02-18 03:04 | NUR ---
Patient discharged to home in stable condition. Written and verbal after care instructions given. Patient verbalizes understanding of instruction.
[2022-02-18 03:06] VITALS: BP 135/77
== END 2022-02-18 03:07 | disposition home or self-care (01) ==
LOC: ER 01:42
DX: M79.10 Myalgia, unspecified site (principal); T50.B95A Adverse effect of other viral vaccines, initial encounter; I10 Essential (primary) hypertension; E78.5 Hyperlipidemia, unspecified; E11.9 Type 2 diabetes mellitus without complications; F17.200 Nicotine dependence, unspecified, uncomplicated; Z60.2 Problems related to living alone; Z79.899 Other long term (current) drug therapy; Y92.89 Other specified places as the place of occurrence of the external cause

== ENCOUNTER 2022-06-08 12:48 | Emergency (ER) | payer MEDICAID ==
[~2022-06-08] VITALS: Ht 182.9 cm; Wt 70.8 kg
[2022-06-08] MEDS ORDERED: ONDANSETRON HCL/PF 4 MG/2 ML VIAL IVP ONE (13:00)
[2022-06-08] MEDS ORDERED: IV NS 0.9% 1,000 ML BAG IV ONE (13:00)
[2022-06-08] MEDS ORDERED: ONDANSETRON HCL/PF 4 MG/2 ML VIAL ONE (13:09)
--- NOTE | 2022-06-08 13:10 | NUR ---
Patient came in to the er c/o epigastric pain H/O pancreatitis. On room air, breathing evenly and unlabored. Kept comfortable, will continue to monitor accordingly.
[2022-06-08 13:16] LABS: BASOPHILS # (AUTO) 0.1 K/uL (0.0-0.2); BASOPHILS % (AUTO) 0.7 % (0.0-2.0); EOSINOPHILS % (AUTO) 2.7 % (0.0-6.0); HEMATOCRIT 45 % (39-51); HEMOGLOBIN 15.8 g/dL (13.5-17.5); LYMPHOCYTES # (AUTO) 2.5 K/uL (0.8-4.8); LYMPHOCYTES % (AUTO) 27.5 % (20.0-44.0); MEAN CORPUSCULAR HGB CONC 35 g/dl (31.0-36.0); MEAN CORPUSCULAR VOLUME 86 fL (80-96); MONOCYTES # (AUTO) 0.7 K/uL (0.1-1.30); MONOCYTES % (AUTO) 7.8 % (2.0-12.0); NEUTROPHILS # (AUTO) 5.5 K/uL (1.8-8.9); NEUTROPHILS % (AUTO) 61.3 % (43.0-81.0); PLATELET COUNT (AUTO) 277 K/uL (150-450); RED BLOOD CELL COUNT(AUTO) 5.24 MIL/uL (4.5-6.0); WHITE BLOOD COUNT (AUTO) 8.9 K/uL (4.3-11.0)
[2022-06-08 13:33] LABS: ALBUMIN 3.8 g/dL (3.4-5.0); BILIRUBIN,TOTAL 0.6 mg/dL (0.2-1.0); CALCIUM, SERUM 8.7 mg/dL (8.5-10.1); POTASSIUM 3.9 mmol/L (3.5-5.1)
[2022-06-08] MEDS ORDERED: HYDROMORPHONE 1 MG/1 ML DISP.SYRIN IV ONE (14:00)
[2022-06-08] MEDS ORDERED: INSULIN REGULAR, HUMAN 100 UNIT/ML 10 ML VIAL SQ ONE (14:00)
[2022-06-08] MEDS ORDERED: HYDROMORPHONE 1 MG/1 ML DISP.SYRIN ONE (14:01)
[2022-06-08] MEDS ORDERED: INSULIN REGULAR, HUMAN 100 UNIT/ML 10 ML VIAL ONE (14:01)
[2022-06-08 14:10] LABS: BILIRUBIN,URINE NEGATIVE (NEGATIVE); COLOR,URINE YELLOW (YELLOW); LEUKOCYTE ESTERASE ,URINE NEGATIVE (NEGATIVE); NITRITE, URINE NEGATIVE (NEGATIVE); PROTEIN,URINE NEGATIVE (NEGATIVE); UGLUCOSE >=1000 mg/dL (NEGATIVE); UROBILINOGEN,URINE 0.2 EU/dL (0.2)
--- NOTE | 2022-06-08 14:12 | NUR ---
covid swab collected and sent to lab
[2022-06-08 14:35] LABS: BILIRUBIN,DIRECT 0.1 mg/dL (0.0-0.2); TOTAL PROTEIN, SERUM 8.2 g/dL (6.4-8.2)
--- NOTE | 2022-06-08 14:42 | NUR ---
MOVE SHEET SUBMITTED.
[2022-06-08] MEDS ORDERED: IV NS 0.9% 1,000 ML IV ONE (15:00)
[2022-06-08] MEDS ORDERED: PIOG1TAB38 PO (15:09)
[2022-06-08] MEDS ORDERED: SEMA0.25 SQ (15:09)
[2022-06-08] MEDS ORDERED: FENO160T PO (15:09)
[2022-06-08] MEDS ORDERED: OMEG-72 PO (15:09)
[2022-06-08] MEDS ORDERED: LOSA50TA39 PO (15:09)
[2022-06-08] MEDS ORDERED: FAMO20TA29 PO (15:09)
[2022-06-08] MEDS ORDERED: ROSU20TA32 PO (15:09)
[2022-06-08] MEDS ORDERED: POLY15DR40 EACHEYE (15:11)
[2022-06-08] MEDS ORDERED: DICL100G34 TP (15:11)
[2022-06-08] MEDS ORDERED: NIAC-5 PO (15:11)
[2022-06-08 15:45] LABS: BACTERIA,URINE None seen /HPF (None Seen); RBC,URINE 0-2 /HPF (0-2); SQUAMOUS EPITHELIAL CELL,UR 0-2 /HPF (None Seen); WBC,URINE 0-2 /HPF (0-3)
[2022-06-08 17:44] VITALS: BP 134/88
--- NOTE | 2022-06-08 18:55 | NUR ---
Pt is agitated, stating its taking too long to get to a room. Patient does not wish to proceed with medical care recommended by Dr. Wood. Patient given information related to possible complications, up to and including , which could occur as a result of leaving the hospital at this time. Patient verbalizes understanding of risks involved due to leaving against medical advice. Patient has signed AMA form.
--- NOTE | 2022-06-08 18:57 | NUR ---
IV removed. Catheter intact and site benign. Pressure and 4x4 applied to site. No bleeding noted.
== END 2022-06-08 18:57 | disposition left against medical advice (07) ==
LOC: ER 12:51
DX: K85.90 Acute pancreatitis without necrosis or infection, unspecified (principal); Z20.822 Contact with and (suspected) exposure to COVID-19; Z53.29 Procedure and treatment not carried out because of patient's decision for other reasons; E11.65 Type 2 diabetes mellitus with hyperglycemia; I10 Essential (primary) hypertension; E78.1 Pure hyperglyceridemia; Z79.84 Long term (current) use of oral hypoglycemic drugs; F17.210 Nicotine dependence, cigarettes, uncomplicated; Z79.899 Other long term (current) drug therapy; E87.1 Hypo-osmolality and hyponatremia
CPT/HCPCS: 99291; 96374; 96361; 96375; 87426; 85025; 80048; 83690; 80076; 81001; 36415; 96372; J1815; J2405; J7030 ×2; J1170; C9803

== ENCOUNTER 2022-12-13 12:52 | Emergency (ER) | payer MEDICAID ==
[~2022-12-13] VITALS: Ht 182.9 cm; Wt 108.9 kg
[~2022-12-13 12:52] MED LIST changes: +DICL100G34 TP; -FAMO-131 PO; +FAMO20TA29 PO; +FENO160T PO; -GEMF600T PO; +LOSA50TA39 PO; +NIAC-5 PO; +OMEG-72 PO; +PIOG1TAB38 PO; +POLY15DR40 EACHEYE; +ROSU20TA32 PO; +SEMA0.25 SQ
--- NOTE | 2022-12-13 13:00 | NUR ---
iv line started, blood drawn and sent to lab.
--- NOTE | 2022-12-13 13:05 | NUR ---
assume patient care, c/o luq pain sudden onset x 3 hours, states has history of pancreatitis. no nausea and vomiting endorse upon assessment. stable vitals. awaiting md downing.
--- NOTE | 2022-12-13 13:16 | NUR ---
dr wade at bedside for eval.
[2022-12-13 13:31] LABS: BASOPHILS # (AUTO) 0.1 K/uL (0.0-0.2); HEMATOCRIT 45 % (39-51); LYMPHOCYTES # (AUTO) 2.4 K/uL (0.8-4.8); NEUTROPHILS # (AUTO) 4.4 K/uL (1.8-8.9)
[2022-12-13 13:45] LABS: BASOPHILS % (AUTO) 0.8 % (0.0-2.0); EOSINOPHILS % (AUTO) 3.3 % (0.0-6.0); LYMPHOCYTES % (AUTO) 31.3 % (20.0-44.0); MEAN CORPUSCULAR HGB CONC 36 g/dl (31.0-36.0); MEAN CORPUSCULAR VOLUME 86 fL (80-96); MONOCYTES # (AUTO) 0.5 K/uL (0.1-1.30); MONOCYTES % (AUTO) 6.6 % (2.0-12.0); PLATELET COUNT (AUTO) 267 K/uL (150-450); RED BLOOD CELL COUNT(AUTO) 5.22 MIL/uL (4.5-6.0); WHITE BLOOD COUNT (AUTO) 7.5 K/uL (4.3-11.0)
[2022-12-13 13:48] LABS: ALBUMIN 3.6 g/dL (3.4-5.0); BILIRUBIN,TOTAL 0.6 mg/dL (0.2-1.0); CALCIUM, SERUM 8.7 mg/dL (8.5-10.1); CREATININE 0.9 mg/dL (0.6-1.3)
[2022-12-13] MEDS ORDERED: KETOROLAC TROMETHAMINE INJ 30 MG/ML VIAL ONE (13:56)
[2022-12-13] MEDS ORDERED: ONDANSETRON HCL/PF 4 MG/2 ML VIAL ONE (13:56)
[2022-12-13] MEDS ORDERED: PANTOPRAZOLE 40 MG VIAL ONE (13:56)
[2022-12-13] MEDS ORDERED: PANTOPRAZOLE 40 MG VIAL IV ONE (14:00)
[2022-12-13] MEDS ORDERED: KETOROLAC TROMETHAMINE INJ 30 MG/ML VIAL IV ONE (14:00)
[2022-12-13] MEDS ORDERED: ONDANSETRON HCL/PF 4 MG/2 ML VIAL IVP ONE (14:00)
[2022-12-13] MEDS ORDERED: IV NS 0.9% 1,000 ML BAG IV ONE ×2 (14:00)
[2022-12-13 14:17] LABS: COLOR,URINE YELLOW (YELLOW); PH,URINE 6.5 (5.0-8.0)
[2022-12-13 14:18] LABS: BILIRUBIN,URINE NEGATIVE (NEGATIVE); LEUKOCYTE ESTERASE ,URINE NEGATIVE (NEGATIVE); NITRITE, URINE NEGATIVE (NEGATIVE); PROTEIN,URINE NEGATIVE (NEGATIVE); UGLUCOSE >1000 mg/dL (NEGATIVE); UROBILINOGEN,URINE 0.2 EU/dL (0.2)
[2022-12-13 14:40] LABS: ALCOHOL, BLOOD < 3 mg/dL (0-0)
[2022-12-13 14:52] LABS: BACTERIA,URINE Few /HPF (None Seen); RBC,URINE 0-2 /HPF (0-2); SQUAMOUS EPITHELIAL CELL,UR Few /HPF (None Seen); WBC,URINE 0-2 /HPF (0-3)
[2022-12-13 15:15] VITALS: BP 126/75
[2022-12-13 15:15] LABS: TRIGLYCERIDES 2020 mg/dL (30-150)
--- NOTE | 2022-12-13 15:40 | NUR ---
IV removed. Catheter intact and site benign. Pressure and 4x4 applied to site. No bleeding noted.
[2022-12-13 16:35] LABS: TOTAL PROTEIN, SERUM 7.8 g/dL (6.4-8.2)
== END 2022-12-13 15:46 | disposition home or self-care (01) ==
LOC: ER 12:56
DX: E11.65 Type 2 diabetes mellitus with hyperglycemia (principal); I10 Essential (primary) hypertension; E78.5 Hyperlipidemia, unspecified; F17.200 Nicotine dependence, unspecified, uncomplicated; Z79.899 Other long term (current) drug therapy
CPT/HCPCS: 99284; 96374; 96361; 96375; 93005; 85025; 80048; 83690; 80076; 84478; 81001; 36415; 82962; 80320; 80307; J1885; J2405; J7030 ×2; C9113; G0480

== ENCOUNTER 2022-12-21 12:54 | Emergency (ER) | payer MEDICAID ==
[~2022-12-21] VITALS: Ht 185.4 cm; Wt 113.4 kg
--- NOTE | 2022-12-21 13:11 | NUR ---
Patient AOx4 able to express his own concerns. States MD has discussed plan of care, patient verbalized agrement. All safety precautions taken.
--- NOTE | 2022-12-21 13:22 | NUR ---
Blood collected and sent to lab.
[2022-12-21] MEDS ORDERED: ONDANSETRON HCL/PF 4 MG/2 ML VIAL ONE (13:24)
[2022-12-21] MEDS ORDERED: ACETAMINOPHEN ES 500 MG TABLET ONE (13:24)
[2022-12-21] MEDS ORDERED: FAMOTIDINE/PF INJ 20 MG/2 ML VIAL IV ONE ×2 (13:25→13:30)
[2022-12-21 13:29] LABS: BASOPHILS # (AUTO) 0.1 K/uL (0.0-0.2); BASOPHILS % (AUTO) 0.7 % (0.0-2.0); EOSINOPHILS % (AUTO) 2.8 % (0.0-6.0); HEMATOCRIT 46 % (39-51); HEMOGLOBIN 16.1 g/dL (13.5-17.5); LYMPHOCYTES # (AUTO) 1.9 K/uL (0.8-4.8); LYMPHOCYTES % (AUTO) 26.3 % (20.0-44.0); MEAN CORPUSCULAR HGB CONC 35 g/dl (31.0-36.0); MEAN CORPUSCULAR VOLUME 85 fL (80-96); MONOCYTES # (AUTO) 0.6 K/uL (0.1-1.30); MONOCYTES % (AUTO) 8.2 % (2.0-12.0); NEUTROPHILS # (AUTO) 4.6 K/uL (1.8-8.9); PLATELET COUNT (AUTO) 261 K/uL (150-450); RED BLOOD CELL COUNT(AUTO) 5.42 MIL/uL (4.5-6.0); WHITE BLOOD COUNT (AUTO) 7.4 K/uL (4.3-11.0)
[2022-12-21] MEDS ORDERED: ACETAMINOPHEN ES 500 MG TABLET PO ONE (13:30)
[2022-12-21] MEDS ORDERED: ONDANSETRON HCL/PF 4 MG/2 ML VIAL IVP ONE (13:30)
[2022-12-21 14:23] LABS: BILIRUBIN,URINE Negative (NEGATIVE); COLOR,URINE YELLOW (YELLOW); LEUKOCYTE ESTERASE ,URINE Negative (NEGATIVE); NITRITE, URINE Negative (NEGATIVE); PH,URINE 5.5 (5.0-8.0); PROTEIN,URINE Negative (NEGATIVE); UGLUCOSE 500 MG/DL mg/dL (NEGATIVE); UROBILINOGEN,URINE 0.2 EU/dL (0.2)
[2022-12-21 14:25] LABS: ALBUMIN 3.8 g/dL (3.4-5.0); BILIRUBIN,TOTAL 0.3 mg/dL (0.2-1.0); CALCIUM, SERUM 8.9 mg/dL (8.5-10.1); CREATININE 0.9 mg/dL (0.6-1.3); POTASSIUM 4.2 mmol/L (3.5-5.1); TOTAL PROTEIN, SERUM 8.1 g/dL (6.4-8.2)
[2022-12-21] MEDS ORDERED: KETOROLAC TROMETHAMINE INJ 30 MG/ML VIAL IV ONE (14:30)
[2022-12-21] MEDS ORDERED: KETOROLAC TROMETHAMINE INJ 30 MG/ML VIAL ONE (14:31)
[2022-12-21] MEDS ORDERED: INSULIN REGULAR, HUMAN 100 UNIT/ML 10 ML VIAL SQ ONE (15:00)
[2022-12-21 15:13] VITALS: BP 120/78
[2022-12-21 16:38] LABS: BACTERIA,URINE None seen /HPF (None Seen); RBC,URINE 0-2 /HPF (0-2); SQUAMOUS EPITHELIAL CELL,UR 0-2 /HPF (None Seen); WBC,URINE 0-2 /HPF (0-3)
== END 2022-12-21 15:14 | disposition home or self-care (01) ==
LOC: ER 13:02
DX: R10.13 Epigastric pain (principal); R11.2 Nausea with vomiting, unspecified; I10 Essential (primary) hypertension; E11.9 Type 2 diabetes mellitus without complications; F17.200 Nicotine dependence, unspecified, uncomplicated; Z79.899 Other long term (current) drug therapy
CPT/HCPCS: 99284; 96374; 96375; 85025; 80048; 83690; 80076; 81001; 36415; 96372; J3490; J1885; J2405; J1815

== ENCOUNTER 2023-04-15 11:19 | Emergency (ER) | payer MEDICAID ==
[~2023-04-15] VITALS: Ht 182.9 cm; Wt 95.7 kg
[2023-04-15] MEDS ORDERED: KETOROLAC TROMETHAMINE 15 MG/ML VIAL ONE (11:39)
[2023-04-15] MEDS ORDERED: MORPHINE SULFATE INJ 4 MG/ML DISP.SYRIN ONE (11:39)
[2023-04-15] MEDS ORDERED: HYDR-4303 PO (11:45)
[2023-04-15] MEDS ORDERED: PRED20TA PO (11:45)
[2023-04-15] MEDS ORDERED: CYCL5TAB PO (11:45)
[2023-04-15] MEDS ORDERED: IBUP-1955 PO (11:45)
[2023-04-15] MEDS ORDERED: LIDO30AD10 TP (11:45)
[2023-04-15] MEDS ORDERED: MORPHINE SULFATE INJ 2 MG/ML DISP.SYRIN IM ONE (12:00)
[2023-04-15] MEDS ORDERED: KETOROLAC TROMETHAMINE INJ 60 MG/2 ML VIAL IM ONE (12:00)
[2023-04-15 13:51] VITALS: BP 126/79; TEMP 98.1; O2SAT 100
== END 2023-04-15 13:52 | disposition home or self-care (01) ==
LOC: ER 11:26
DX: M54.42 Lumbago with sciatica, left side (principal); I10 Essential (primary) hypertension; E11.9 Type 2 diabetes mellitus without complications; E78.1 Pure hyperglyceridemia; F17.200 Nicotine dependence, unspecified, uncomplicated; Z79.4 Long term (current) use of insulin; Z79.899 Other long term (current) drug therapy
CPT/HCPCS: 99284; 96372 ×2; J2270; J1885

== ENCOUNTER 2023-05-19 16:11 | Emergency (ER) | payer MEDICAID ==
[~2023-05-19] VITALS: Ht 185.4 cm; Wt 95.3 kg
[~2023-05-19 16:11] MED LIST changes: +CYCL5TAB PO; +HYDR-4303 PO; +IBUP-1955 PO; +LIDO30AD10 TP; +PRED20TA PO
[2023-05-19 16:58] LABS: APPEARANCE,URINE CLEAR (CLEAR); BILIRUBIN,URINE NEGATIVE (NEGATIVE); BLOOD, URINE NEGATIVE Ery/uL (NEGATIVE); COLOR,URINE YELLOW (YELLOW); KETONES,URINE NEGATIVE (NEGATIVE); LEUKOCYTE ESTERASE ,URINE NEGATIVE (NEGATIVE); NITRITE, URINE NEGATIVE (NEGATIVE); PH,URINE 5.5 (5.0-8.0); PROTEIN,URINE NEGATIVE (NEGATIVE); UGLUCOSE 3+ mg/dL (NEGATIVE); UROBILINOGEN,URINE 0.2 EU/dL (0.2)
[2023-05-19] MEDS ORDERED: IV NS 0.9% 1,000 ML IV ONE (17:00)
[2023-05-19] MEDS ORDERED: HYDROMORPHONE INJ 2 MG/ML DISP.SYRIN IV ONE (17:00)
[2023-05-19] MEDS ORDERED: HYDROMORPHONE 1 MG/1 ML DISP.SYRIN ONE (17:39)
[2023-05-19 17:45] LABS: ADD URINE CULTURE NO; BACTERIA,URINE None seen /HPF (None Seen); RBC,URINE 0-2 /HPF (0-2); SQUAMOUS EPITHELIAL CELL,UR 0-2 /HPF (None Seen); WBC,URINE 0-2 /HPF (0-3)
[2023-05-19 17:47] LABS: BASOPHILS % (AUTO) 0.4 % (0.0-2.0); EOSINOPHILS # (AUTO) 0.2 K/uL (0.0-0.7); HEMATOCRIT 44 % (39-51); HEMOGLOBIN 14.7 g/dL (13.5-17.5); LYMPHOCYTES # (AUTO) 2.4 K/uL (0.8-4.8); LYMPHOCYTES % (AUTO) 31.8 % (20.0-44.0); MEAN CORPUSCULAR HEMOGLOBIN 30 PG (26.0-33.0); MEAN CORPUSCULAR HGB CONC 34 g/dl (31.0-36.0); MEAN CORPUSCULAR VOLUME 89 fL (80-96); MONOCYTES # (AUTO) 0.7 K/uL (0.1-1.30); NEUTROPHILS # (AUTO) 4.4 K/uL (1.8-8.9); NEUTROPHILS % (AUTO) 56.8 % (43.0-81.0); PLATELET COUNT (AUTO) 259 K/uL (150-450); RED BLOOD CELL COUNT(AUTO) 4.92 MIL/uL (4.5-6.0); RED CELL DISTRIBUTION WIDTH 13.3 % (11.5-15.0); WHITE BLOOD COUNT (AUTO) 7.7 K/uL (4.3-11.0)
[2023-05-19 18:20] LABS: CALCIUM, SERUM 8.8 mg/dL (8.5-10.1); CREATININE 0.9 mg/dL (0.6-1.3); POTASSIUM 3.4 mmol/L (3.5-5.1)
[2023-05-19 18:27] LABS: ALBUMIN 3.6 g/dL (3.4-5.0); BILIRUBIN,DIRECT 0.1 mg/dL (0.0-0.2); BILIRUBIN,TOTAL 0.4 mg/dL (0.2-1.0); TOTAL PROTEIN, SERUM 7.4 g/dL (6.4-8.2)
[2023-05-19] MEDS ORDERED: INSULIN REGULAR, HUMAN 100 UNIT/ML 10 ML VIAL ONE (18:30)
[2023-05-19] MEDS ORDERED: INSULIN REGULAR, HUMAN 100 UNIT/ML 10 ML VIAL SQ ONE (18:30)
[2023-05-19] MEDS ORDERED: NAPR-1164 PO (18:40)
[2023-05-19] MEDS ORDERED: FAMO20TA8 PO (18:40)
[2023-05-19] MEDS ORDERED: ONDA4TAB5 PO (18:40)
[2023-05-19 18:55] VITALS: BP 124/78; TEMP 98; O2SAT 100
== END 2023-05-19 18:56 | disposition home or self-care (01) ==
LOC: ER 16:19
DX: R10.12 Left upper quadrant pain (principal); E11.65 Type 2 diabetes mellitus with hyperglycemia; I10 Essential (primary) hypertension; F17.200 Nicotine dependence, unspecified, uncomplicated; Z79.899 Other long term (current) drug therapy
CPT/HCPCS: 99284; 96374; 96361; 85025; 80048; 83690; 80076; 81001; 36415; 96372; J1815; J7030; J1170

== ENCOUNTER 2023-08-20 02:40 | Emergency (ER) | payer SELFPAY ==
[~2023-08-20] VITALS: Ht 182.9 cm; Wt 83.9 kg
[~2023-08-20 02:40] MED LIST changes: +FAMO20TA8 PO; +NAPR-1164 PO; +ONDA4TAB5 PO
[2023-08-20] MEDS ORDERED: ONDANSETRON HCL/PF 4 MG/2 ML VIAL ONE (03:23)
[2023-08-20] MEDS ORDERED: MORPHINE SULFATE INJ 4 MG/ML DISP.SYRIN ONE (03:24)
[2023-08-20 03:27] LABS: SITE, VBG Other; VBG BASE EXCESS 0.2 mmol/L (-3-3); VBG COHb 0.1 %; VBG MetHb 0.2 %; VBG O2Hb 94.9 %; VBG OXYGEN SATURATION 95.2 %; VBG PCO2 37.2 mmHg (40-52); VBG PH 7.431 (7.31-7.41); VBG PO2 77.2 mmHg (30-50); VBG TOTAL HEMOGLOBIN 14.8 G/dL (13.5-18.0); VENT MODE, VBG room air
[2023-08-20] MEDS ORDERED: ONDANSETRON HCL/PF 4 MG/2 ML VIAL IVP ONE (03:30)
[2023-08-20] MEDS ORDERED: MORPHINE SULFATE INJ 2 MG/ML DISP.SYRIN IV ONE (03:30)
[2023-08-20] MEDS ORDERED: IV NS 0.9% 1,000 ML BAG IV ONE (03:30)
[2023-08-20 03:31] LABS: BASOPHILS # (AUTO) 0.1 K/uL (0.0-0.2); BASOPHILS % (AUTO) 0.7 % (0.0-2.0); EOSINOPHILS # (AUTO) 0.3 K/uL (0.0-0.7); EOSINOPHILS % (AUTO) 3.6 % (0.0-6.0); HEMATOCRIT 42 % (39-51); HEMOGLOBIN 14.4 g/dL (13.5-17.5); LYMPHOCYTES # (AUTO) 2.7 K/uL (0.8-4.8); LYMPHOCYTES % (AUTO) 32.9 % (20.0-44.0); MEAN CORPUSCULAR HEMOGLOBIN 30 PG (26.0-33.0); MEAN CORPUSCULAR HGB CONC 34 g/dl (31.0-36.0); MEAN CORPUSCULAR VOLUME 89 fL (80-96); MONOCYTES # (AUTO) 0.6 K/uL (0.1-1.30); MONOCYTES % (AUTO) 7.2 % (2.0-12.0); NEUTROPHILS # (AUTO) 4.5 K/uL (1.8-8.9); NEUTROPHILS % (AUTO) 55.6 % (43.0-81.0); PLATELET COUNT (AUTO) 308 K/uL (150-450); RED BLOOD CELL COUNT(AUTO) 4.78 MIL/uL (4.5-6.0); RED CELL DISTRIBUTION WIDTH 12.9 % (11.5-15.0); WHITE BLOOD COUNT (AUTO) 8.1 K/uL (4.3-11.0)
[2023-08-20 03:39] LABS: CALCIUM, SERUM 9.3 mg/dL (8.5-10.1); CREATININE 0.9 mg/dL (0.6-1.3); POTASSIUM 3.9 mmol/L (3.5-5.1)
[2023-08-20 03:44] LABS: INR 0.98 (0.91-1.10); PARTIAL THROMBOPLASTIN TIME 28.7 SEC (24.3-34.3); PROTHROMBIN TIME 10.4 SECS (9.2-11.1)
[2023-08-20 03:45] LABS: ALBUMIN 3.5 g/dL (3.4-5.0); BILIRUBIN,DIRECT 0.1 mg/dL (0.0-0.2); BILIRUBIN,TOTAL 0.4 mg/dL (0.2-1.0); TOTAL PROTEIN, SERUM 7.6 g/dL (6.4-8.2)
[2023-08-20] MEDS ORDERED: INSULIN REGULAR, HUMAN 100 UNIT/ML 10 ML VIAL SQ ONE (04:30)
[2023-08-20] MEDS ORDERED: INSULIN REGULAR, HUMAN 100 UNIT/ML 10 ML VIAL ONE (04:44)
[2023-08-20] MEDS ORDERED: ONDA4TAB5 PO (04:49)
[2023-08-20] MEDS ORDERED: FAMO20TA8 PO (04:49)
[2023-08-20] MEDS ORDERED: NAPR-1164 PO (04:49)
[2023-08-20 05:02] VITALS: BP 136/80; TEMP 98.1; O2SAT 98
== END 2023-08-20 05:14 | disposition home or self-care (01) ==
LOC: ER 02:40
DX: K86.1 Other chronic pancreatitis (principal); E11.65 Type 2 diabetes mellitus with hyperglycemia; F10.10 Alcohol abuse, uncomplicated; R10.13 Epigastric pain; I10 Essential (primary) hypertension; F17.200 Nicotine dependence, unspecified, uncomplicated; Z98.890 Other specified postprocedural states; Z79.899 Other long term (current) drug therapy; Y90.0 Blood alcohol level of less than 20 mg/100 ml
CPT/HCPCS: 99284; 96372; 96374; 96361; 96375; 82803 ×2; 85025; 80048; 83690; 80076; 36415; 85730; 82962; 80320; J1815; J2270; J2405; J7030; A4223 ×2; G0480

== ENCOUNTER 2023-11-16 23:02 | Emergency (ER) | payer MEDICAID ==
[~2023-11-16] VITALS: Ht 182.9 cm; Wt 86.2 kg
[2023-11-17 00:12] VITALS: BP 131/75; TEMP 98.4; O2SAT 98
== END 2023-11-17 00:12 | disposition home or self-care (01) ==
LOC: ER 23:04
DX: F15.10 Other stimulant abuse, uncomplicated (principal); F41.9 Anxiety disorder, unspecified; I10 Essential (primary) hypertension; E11.8 Type 2 diabetes mellitus with unspecified complications; E78.1 Pure hyperglyceridemia; G47.00 Insomnia, unspecified

== ENCOUNTER 2024-03-07 04:36 | Emergency (ER) | payer MEDICAID, OTHER ==
[~2024-03-07] VITALS: Ht 180.3 cm; Wt 72.6 kg
[2024-03-07] MEDS ORDERED: ONDANSETRON HCL/PF 4 MG/2 ML VIAL ONE (05:55)
[2024-03-07] MEDS: ONDANSETRON HCL/PF 4 MG/2 ML VIAL IVP ONE (06:00)
[2024-03-07] MEDS: IV NS 0.9% 1,000 ML BAG IV ONE ×2 (06:00→06:33)
[2024-03-07 06:28] LABS: BASOPHILS % (AUTO) 0.5 % (0.0-2.0); EOSINOPHILS # (AUTO) 0.3 K/uL (0.0-0.7); HEMATOCRIT 42 % (39-51); HEMOGLOBIN 14.7 g/dL (13.5-17.5); LYMPHOCYTES # (AUTO) 2.9 K/uL (0.8-4.8); LYMPHOCYTES % (AUTO) 33.9 % (20.0-44.0); MEAN CORPUSCULAR HEMOGLOBIN 30 PG (26.0-33.0); MEAN CORPUSCULAR HGB CONC 35 g/dl (31.0-36.0); MEAN CORPUSCULAR VOLUME 88 fL (80-96); MONOCYTES # (AUTO) 0.9 K/uL (0.1-1.30); NEUTROPHILS # (AUTO) 4.4 K/uL (1.8-8.9); NEUTROPHILS % (AUTO) 51.6 % (43.0-81.0); PLATELET COUNT (AUTO) 234 K/uL (150-450); RED BLOOD CELL COUNT(AUTO) 4.83 MIL/uL (4.5-6.0); RED CELL DISTRIBUTION WIDTH 13.9 % (11.5-15.0); WHITE BLOOD COUNT (AUTO) 8.6 K/uL (4.3-11.0)
[2024-03-07] MEDS: IV LR 1000 ML 1,000 ML BAG IV ONE (06:30)
[2024-03-07] MEDS: ONDANSETRON HCL/PF 4 MG/2 ML VIAL IV ONE (06:32)
[2024-03-07] MEDS ORDERED: KETOROLAC TROMETHAMINE INJ 30 MG/ML VIAL ONE (06:35)
[2024-03-07 06:38] LABS: CALCIUM, SERUM 9.3 mg/dL (8.5-10.1); POTASSIUM 3.6 mmol/L (3.5-5.1)
[2024-03-07 06:38] LABS: VBG BASE EXCESS -3.3 mmol/L (-3-3); VBG COHb 0.3 %; VBG MetHb 0.2 %; VBG O2Hb 90.7 %; VBG OXYGEN SATURATION 91.2 %; VBG PCO2 35.9 mmHg (40-52); VBG PH 7.386 (7.31-7.41); VBG PO2 65.2 mmHg (30-50); VBG TOTAL HEMOGLOBIN 14.6 G/dL (13.5-18.0); VENT MODE, VBG Room Air
[2024-03-07] MEDS: KETOROLAC TROMETHAMINE INJ 30 MG/ML VIAL IM ONE (06:39)
[2024-03-07 06:42] LABS: INR 0.98 (0.91-1.10); PARTIAL THROMBOPLASTIN TIME 27.9 SEC (24.3-34.3); PROTHROMBIN TIME 10.4 SECS (9.2-11.1)
[2024-03-07 06:45] LABS: ALBUMIN 3.4 g/dL (3.4-5.0); BILIRUBIN,DIRECT 0.1 mg/dL (0.0-0.2); BILIRUBIN,TOTAL 0.4 mg/dL (0.2-1.0); TOTAL PROTEIN, SERUM 7.6 g/dL (6.4-8.2)
[2024-03-07] MEDS: INSULIN LISPRO/ASPART 100 UNIT/ML CARTRIDGE SQ ONE (07:00)
[2024-03-07] MEDS ORDERED: ONDA4TAB11 PO (07:35)
[2024-03-07 07:50] VITALS: BP 122/71; TEMP 97.8; O2SAT 98
== END 2024-03-07 07:52 | disposition home or self-care (01) ==
LOC: ER 04:52
DX: E11.65 Type 2 diabetes mellitus with hyperglycemia (principal); E86.0 Dehydration; R11.0 Nausea; R10.9 Unspecified abdominal pain; I10 Essential (primary) hypertension; E11.9 Type 2 diabetes mellitus without complications; F17.200 Nicotine dependence, unspecified, uncomplicated; Z87.19 Personal history of other diseases of the digestive system
CPT/HCPCS: 99284; 96374; 96361; 82803; 85025; 80048; 83690; 80076; 36415; 85730; 82962 ×2; 96372 ×2; J1885; J2405; J7120; J7030; J1815

== ENCOUNTER 2025-02-11 08:27 | Emergency (ER) | payer OTHER ==
[~2025-02-11] VITALS: Ht 182.9 cm; Wt 83.0 kg
[~2025-02-11 08:27] MED LIST changes: +ONDA4TAB11 PO
[2025-02-11] MEDS ORDERED: MORPHINE SULFATE INJ 4 MG/ML DISP.SYRIN ONE (09:10)
[2025-02-11] MEDS ORDERED: ONDANSETRON HCL/PF 4 MG/2 ML VIAL ONE (09:10)
[2025-02-11 09:16] LABS: BASOPHILS % (AUTO) 0.5 % (0.0-2.0); EOSINOPHILS # (AUTO) 0.1 K/uL (0.0-0.7); EOSINOPHILS % (AUTO) 0.9 % (0.0-6.0); HEMATOCRIT 47 % (39-51); HEMOGLOBIN 16.5 g/dL (13.5-17.5); LYMPHOCYTES # (AUTO) 1.9 K/uL (0.8-4.8); LYMPHOCYTES % (AUTO) 18.9 % (20.0-44.0); MEAN CORPUSCULAR HEMOGLOBIN 32 PG (26.0-33.0); MEAN CORPUSCULAR HGB CONC 35 g/dl (31.0-36.0); MEAN CORPUSCULAR VOLUME 90 fL (80-96); MONOCYTES # (AUTO) 0.8 K/uL (0.1-1.30); MONOCYTES % (AUTO) 8.2 % (2.0-12.0); NEUTROPHILS # (AUTO) 7.1 K/uL (1.8-8.9); NEUTROPHILS % (AUTO) 71.5 % (43.0-81.0); PLATELET COUNT (AUTO) 325 K/uL (150-450); RED BLOOD CELL COUNT(AUTO) 5.19 MIL/uL (4.5-6.0); WHITE BLOOD COUNT (AUTO) 9.9 K/uL (4.3-11.0)
[2025-02-11] MEDS: IV NS 0.9% 1,000 ML BAG IV ONE (09:17)
[2025-02-11] MEDS: MORPHINE SULFATE INJ 2 MG/ML DISP.SYRIN IV ONE (09:18)
[2025-02-11] MEDS: ONDANSETRON HCL/PF 4 MG/2 ML VIAL IVP ONE (09:19)
[2025-02-11 09:20] LABS: SITE, VBG VBG - N/A; VBG BASE EXCESS -2.7 mmol/L (-2.0-3.0); VBG COHb 0.3 % (0.5-1.5); VBG HCO3 22.9 mmol/L (22.0-29.0); VBG MetHb 0.4 % (0.5-1.5); VBG O2Hb 61.5 % (0-79); VBG OXYGEN SATURATION 61.9 % (60.0-85.0); VBG PCO2 42.8 mmHg (38.0-54.0); VBG PH 7.347 (7.320-7.430); VBG PO2 33.4 mmHg (23.0-48.0); VBG TOTAL HEMOGLOBIN 15.9 G/dL (13.5-17.5)
[2025-02-11 09:28] LABS: CALCIUM, SERUM 9.5 mg/dL (8.5-10.1); CREATININE 0.9 mg/dL (0.6-1.3); POTASSIUM 3.9 mmol/L (3.5-5.1)
[2025-02-11 09:34] LABS: ALBUMIN 4.3 g/dL (3.4-5.0); BILIRUBIN,DIRECT 0.1 mg/dL (0.0-0.2); BILIRUBIN,TOTAL 0.4 mg/dL (0.2-1.0); TOTAL PROTEIN, SERUM 9.2 g/dL (6.4-8.2)
[2025-02-11 10:16] VITALS: BP 128/83; TEMP 98.2; O2SAT 99
== END 2025-02-11 10:17 | disposition home or self-care (01) ==
LOC: ER 08:33
DX: E86.0 Dehydration (principal); F10.10 Alcohol abuse, uncomplicated; K86.1 Other chronic pancreatitis; I10 Essential (primary) hypertension; E11.65 Type 2 diabetes mellitus with hyperglycemia; R10.84 Generalized abdominal pain; R11.2 Nausea with vomiting, unspecified; Z79.52 Long term (current) use of systemic steroids; Z79.84 Long term (current) use of oral hypoglycemic drugs; Z79.899 Other long term (current) drug therapy; Z87.19 Personal history of other diseases of the digestive system
CPT/HCPCS: 99284; 96374; 96361; 96375; 82803 ×2; 85025; 80048; 82010; 83690; 80076; 36415; 82962; J2270; J2405; J7030

== ENCOUNTER 2025-05-01 22:50 | Emergency (ER) | payer OTHER ==
[~2025-05-01] VITALS: Ht 182.9 cm; Wt 72.6 kg
[2025-05-01 23:17] VITALS: BP 124/97; TEMP 98.3; O2SAT 98
[2025-05-02 00:06] LABS: PLATELET COUNT (AUTO) 337 K/uL (150-450); RED BLOOD CELL COUNT(AUTO) 4.84 MIL/uL (4.5-6.0); RED CELL DISTRIBUTION WIDTH 12.6 % (11.5-15.0); WHITE BLOOD COUNT (AUTO) 7.1 K/uL (4.3-11.0)
[2025-05-02 00:12] LABS: CALCIUM, SERUM 9.1 mg/dL (8.5-10.1); CREATININE 1.2 mg/dL (0.6-1.3); SODIUM SERUM 137 mmol/L (136-145); UREA NITROGEN, BLOOD 15 mg/dL (7-18)
[2025-05-02 00:16] LABS: ACETONE, SERUM NEGATIVE (NEGATIVE)
[2025-05-02 00:18] LABS: ASPARTATE AMINOTRANSFERASE 14 U/L (15-37); TOTAL PROTEIN, SERUM 7.4 g/dL (6.4-8.2)
[2025-05-02] MEDS ORDERED: PERM60CR4 TP (01:32)
== END 2025-05-02 01:42 | disposition home or self-care (01) ==
LOC: ER 22:56
DX: B86 Scabies (principal); E11.9 Type 2 diabetes mellitus without complications; I10 Essential (primary) hypertension; Z79.52 Long term (current) use of systemic steroids; Z79.84 Long term (current) use of oral hypoglycemic drugs; Z79.899 Other long term (current) drug therapy; Z87.19 Personal history of other diseases of the digestive system
CPT/HCPCS: 99283; 85025; 82010; 36415; 80053; 82962; 96372; J1200